=== PATIENT | female | born 1930 | race Caucasian/White ===

== ENCOUNTER 2017-01-30 16:45 | Observation (INO) | payer OTHER ==
[~2017-01-30] VITALS: Ht 165.1 cm; Wt 68.2 kg
[~2017-01-30 16:45] MED LIST: ASPEC325 PO; BTP80 PO; CHOL100010 PO; FRRS300 PO; SIMV10TA2 PO
[2017-01-30 18:34] LABS: BASO % 0.9 %; BASO ABS # 0.05 K/uL (0-0.2); COMPLETE YES; EOS % 2.3 %; HEMATOCRIT 39.4 % (37-47); IG% 0.2 %; LYMPH % 47.1 %; LYMPH ABS # 2.66 K/uL (1.2-3.4); MEAN CELL VOLUME 83.1 fL (80-100); MEAN CORPUSCULAR HEMOGLOBIN 27.8 pg (25-34); MEAN CORPUSCULAR HGB CONC 33.5 g/dl (32-36); MEAN PLATELET VOLUME 10.7 fL (7.4-10.4); NEUT % 37.5 %; PLATELET COUNT 167 K/uL (130-400); RED BLOOD COUNT 4.74 M/uL (4.2-5.4); WHITE BLOOD COUNT 5.65 K/uL (4.8-10.8)
--- NOTE | 2017-01-30 18:36 | DIAGNOSTIC IMAGING REPORT ---
CHEST 2 VIEWS ROUTINE CLINICAL HISTORY: cp eval for pnea dyspnea COMPARISON STUDY: 02/04/2016 FINDINGS: Thoracic scoliosis. Patchy parenchymal infiltrate left base. Baseline emphysematous change. Plate like atelectasis right base. IMPRESSION: Infiltrate left base. Electronically signed by: William Hobbs M.D. 01/30/2017 6:35 PM Dictated Date/Time: 01/30/2017 6:34 PM
[2017-01-30 18:50] LABS: PARTIAL THROMBOPLASTIN RATIO 0.9; PROTHROMBIN TIME (PATIENT) 10.5 SECONDS (9.0-12.0)
[2017-01-30] MEDS ORDERED: ASPI81TA28 PO (18:51)
[2017-01-30] MEDS ORDERED: CALC8.5C PO (18:54)
[2017-01-30] MEDS ORDERED: SOTA80TA PO (18:54)
[2017-01-30] MEDS ORDERED: FERR1TAB62 PO (18:54)
[2017-01-30 18:58] LABS: BUN/CREATININE RATIO 13.6 (10-20); CALCIUM 9.3 mg/dl (8.5-10.1); CREATININE 1.6 mg/dl (0.60-1.20); POTASSIUM 4.2 mmol/L (3.5-5.1)
[2017-01-30] MEDS ORDERED: ACETAMINOPHEN 325 MG TAB PO PRN (21:30)
[2017-01-30] MEDS ORDERED: NITROGLYCERIN 0.4 MG SL PER TAB CHARGE SL PRN (21:30)
--- NOTE | 2017-01-30 21:38 | History and Physical ---
History & Physical Date & Time of Service: Jan 30, 2017 at 21:24 Chief Complaint: Chest Pains- Referred Primary Care Physician: Elma Betancur M.D. History of Present Illness Source: patient, family, clinic records, hospital records 86 year old female with history of Paroxysmal Atrial Fibrillation on Aspirin, CVA, DM Diet Controlled, CKD 3, presenting with chest pain. Patient follows with Dr. Betancur for Primary Care and Dr. Rivas for Cardiology. She was in her usual state of health until this afternoon around 12noon, while changing bedsheets, patient experienced left sided chest pain- mild-moderate, dull, non radiating, no dyspnea/palpitations/dizziness/diaphoresis. She rested and the pain seemed to have subsided after 2 minutes. The chest pain then recurred while at rest prompting patient to take 1 nitroglycerin which did not help relieve her symptoms. She reports that the chest pain was coming and going throughout the afternoon. She then called her PCP which advised ER consult. Patient admits to carrying a very heavy vacuum plate cleaner upstairs (14 steps) yesterday. At the ER, patient was received with BP 175/76. EKG sinus lewis with no signs of acute ischemia. Cardiac markers x 1 negative. CXR showed possible left infiltrate. On exam, patient seen resting in bed, comfortable. Pain has not recurred since arrival at the ER. Denies active chest pain, dyspnea, palpitations, dizziness, nausea. No cough, sputum, fever/chills. No other symptoms. Past Medical/Surgical History Medical Problems: (1) Cerebrovascular disease, arteriosclerotic, post-stroke Status: Chronic (2) CKD (chronic kidney disease), stage III Status: Chronic (3) DM type 2 (diabetes mellitus, type 2) Status: Chronic (4) Dyslipidemia Status: Chronic (5) Glaucoma Status: Chronic (6) H/O herpes zoster Status: Chronic (7) Hypertension Status: Chronic (8) Iron deficiency anemia Status: Chronic (9) PAF (paroxysmal atrial fibrillation) Status: Chronic (10) Stroke Status: Resolved (11) Venous insufficiency Status: Chronic Surgical Problems: (1) H/O breast biopsy Status: Chronic (2) H/O colonoscopy Status: Chronic (3) History of cataract surgery Status: Chronic (4) S/P cholecystectomy Status: Chronic (5) S/p EGD Status: Chronic Family History Diabetes mellitus FH: heart disease Social History Smoking Status: Never Smoker Alcohol Use: none Drug Use: none Marital Status: Housing status: lives alone Occupational Status: retired Immunizations History of Influenza Vaccine: Unknown History of Tetanus Vaccine?: Unknown History of Pneumococcal: Unknown History of Hepatitis B Vaccine: Unknown Multi-Drug Resistant Organisms History of MDRO: No Allergies Coded Allergies: No Known Allergies (Verified , 02/04/16) Home Medications Scheduled Aspirin (Aspirin Ec), 81 MG PO DAILY Calcium W/ Vitamins D & K (Viactiv), 1 TAB PO DAILY Ferrous Sulfate (Ferrous Sulfate), 325 MG PO DAILY Simvastatin (Zocor), 10 MG PO QPM Sotalol Hcl (Sotalol Hcl), 40 MG PO BID Review of Systems Constitutional- no fever; no weight loss Eyes- no acute visual changes ENT- no sinus drainage; no pharyngitis Pulmonary- no cough, no wheezing, no shortness of breath Cardiac-(+) as noted above GI- no nausea, no vomiting, no diarrhea, no melena, no hematochezia - no dysuria, no hematuria Musculoskeletal- no arthralgias, no myalgias Derm- no rashes, no new skin lesions, no changing skin lesions Hematologic- no unusual bruising, no unusual bleeding Lymphatics- no adenopathy Endocrine- no polyuria or polydipsia; no heat or cold intolerance Neuro- no headaches, no focal neurologic symptoms Psych- no anxiety, no depression Physical Exam Vital Signs Date Time Temp Pulse Resp B/P Pulse Ox O2 Delivery O2 Flow Rate FiO2 01/30/17 19:15 58 20 156/69 95 Room Air 01/30/17 18:16 95 Room Air 01/30/17 18:04 60 01/30/17 16:53 36.6 57 18 175/76 97 Room Air 01/30/17 16:53 96 Room Air General Appearance: WD/WN, no apparent distress Head: normocephalic, atraumatic Eyes: normal inspection, PERRL, sclerae normal ENT: normal ENT inspection, pharynx normal, + pertinent finding ((+) hearing aids) Neck: supple, no adenopathy, thyroid normal, no JVD, trachea midline Respiratory/Chest: chest non-tender, lungs clear, normal breath sounds, no respiratory distress, no accessory muscle use, + pertinent finding (no chest wall tenderness) Cardiovascular: regular rate, rhythm, no edema, no JVD, no murmur Abdomen/GI: normal bowel sounds, non tender, soft Back: normal inspection, no CVA tenderness Extremities/Musculoskelatal: normal inspection, no calf tenderness, no pedal edema, normal range of motion Neurologic/Psych: study hall supervisor II-XII nml as tested, no motor/sensory deficits, alert, normal mood/affect, oriented x 3 Skin: normal color, warm/dry, no rash Lymphatic: no adenopathy Diagnostics Laboratory Results Results Past 24 Hours Test 01/30/17 18:14 01/30/17 19:05 Range/Units White Blood Count 5.65 4.8-10.8 K/uL Red Blood Count 4.74 4.2-5.4 M/uL Hemoglobin 13.2 12.0-16.0 g/dL Hematocrit 39.4 37-47 % Mean Corpuscular Volume 83.1 80-100 fL Mean Corpuscular Hemoglobin 27.8 25-34 pg Mean Corpuscular Hemoglobin Concent 33.5 32-36 g/dl Platelet Count 167 130-400 K/uL Mean Platelet Volume 10.7 7.4-10.4 fL Neutrophils (%) (Auto) 37.5 % Lymphocytes (%) (Auto) 47.1 % Monocytes (%) (Auto) 12.0 % Eosinophils (%) (Auto) 2.3 % Basophils (%) (Auto) 0.9 % Neutrophils # (Auto) 2.12 1.4-6.5 K/uL Lymphocytes # (Auto) 2.66 1.2-3.4 K/uL Monocytes # (Auto) 0.68 0.11-0.59 K/uL Eosinophils # (Auto) 0.13 0-0.5 K/uL Basophils # (Auto) 0.05 0-0.2 K/uL RDW Standard Deviation 42.8 36.4-46.3 fL RDW Coefficient of Variation 14.1 11.5-14.5 % Immature Granulocyte % (Auto) 0.2 % Immature Granulocyte # (Auto) 0.01 0.00-0.02 K/uL Prothrombin Time 10.5 9.0-12.0 SECONDS Prothromb Time International Ratio 1.0 0.9-1.1 Activated Partial Thromboplast Time 24.0 21.0-31.0 SECONDS Partial Thromboplastin Ratio 0.9 Sodium Level 143 136-145 mmol/L Potassium Level 4.2 3.5-5.1 mmol/L Chloride Level 109 98-107 mmol/L Carbon Dioxide Level 28 21-32 mmol/L Anion Gap 6.0 3-11 mmol/L Blood Urea Nitrogen 22 7-18 mg/dl Creatinine 1.60 0.60-1.20 mg/dl Est Creatinine Clear Calc Drug Dose 23.6 ml/min Estimated GFR () 33.5 Estimated GFR (Non- 28.9 BUN/Creatinine Ratio 13.6 10-20 Random Glucose 139 70-99 mg/dl Calcium Level 9.3 8.5-10.1 mg/dl Bedside Troponin I 0.000 0-0.045 ng/ml Diagnostic Radiology CXR FINDINGS: Thoracic scoliosis. Patchy parenchymal infiltrate left base. Baseline emphysematous change. Plate like atelectasis right base. IMPRESSION: Infiltrate left base. EKG sinus lewis HR 59, no signs of acute ischemia or infarct Impression Assessment and Plan 86 year old female with history of Paroxysmal Atrial Fibrillation on Aspirin, CVA, DM Diet Controlled, CKD 3, presenting with chest pain. 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 Y/N: Yes Risk Level: Moderate
[2017-01-30] MEDS ORDERED: GLUCAGON FOR INJ 1 MG VIAL SQ PRN (21:45)
[2017-01-30] MEDS ORDERED: GLUCOSE 10 TABS/TUBE PO PRN (21:45)
[2017-01-30] MEDS ORDERED: GLUCOSE 40% GEL 15 GM TUBE PO PRN (21:45)
[2017-01-30] MEDS ORDERED: DEXTROSE 50% 50 ML SYR IV PRN (21:45)
[2017-01-30] MEDS ORDERED: IV FLUIDS COMPLETED PRN (21:45)
--- NOTE | 2017-01-30 23:29 | EMERGENCY ROOM VISIT NOTE ---
History Report prepared by Jordan: Malik Hernandez Under the Supervision of: Dr. Landen Donato M.D. First contact with patient: 17:50 Chief Complaint: CHEST PAIN Stated Complaint: CHEST PAINS- REFERRED Nursing Triage Summary: PT VERBALIZES "SOMETHING JUST ISN'T RIGHT IN MY CHEST". DENIES CP OR SOB. PT TOOK TWO NITRO AT HOME WITH NO CHANGE IN SYMPTOMS. History of Present Illness The patient is a 86 year old female who presents to the Emergency Room with complaints of intermittent left chest discomfort starting around 1200 today. The patient states that it is difficult to describe the discomfort. She describes it to be an "unusual feeling" in her chest. She denies it to be a sharp, aching pain. She does not think there is any chest tightness. She denies any radiation to back or arm. She currently denies any chest pain or discomfort. She took Nitro without relief. The patient denies any recent illnesses, lightheadedness, fevers, cough, shortness of breath, nausea, abdominal pain, lower extremity pain/swelling, or any other complaints. She denies any history of similar symptoms. She has a history of chest pain occurring for the past several years. The patient denies any past medical history of myocardial infarction or heart catheterization. Source of History: patient Onset: around 1200 today Position: chest (left) Symptom Intensity: No pain or discomfort currently Quality: other (discomfort) Timing: intermittent Modifying Factors (Relieving): other (Nitro without relief) Associated Symptoms: No SOB, No abdominal pain, No cough, No fevers, No nausea Review of Systems See HPI for pertinent positives & negatives. A total of 10 systems reviewed and were otherwise negative. Past Medical & Surgical Medical Problems: (1) Cerebrovascular disease, arteriosclerotic, post-stroke (2) Chest pain (3) CKD (chronic kidney disease), stage III (4) DM type 2 (diabetes mellitus, type 2) (5) Dyslipidemia (6) Glaucoma (7) H/O herpes zoster (8) Hypertension (9) Iron deficiency anemia (10) PAF (paroxysmal atrial fibrillation) (11) Stroke (12) Venous insufficiency Surgical Problems: (1) H/O breast biopsy (2) H/O colonoscopy (3) History of cataract surgery (4) S/P cholecystectomy (5) S/p EGD Family History Diabetes mellitus FH: heart disease Social History Smoking Status: Never Smoker Alcohol Use: none Occupation Status: retired Current/Historical Medications Scheduled Aspirin (Aspirin Ec), 81 MG PO DAILY Calcium W/ Vitamins D & K (Viactiv), 1 TAB PO DAILY Ferrous Sulfate (Ferrous Sulfate), 325 MG PO DAILY Simvastatin (Zocor), 10 MG PO QPM Sotalol Hcl (Sotalol Hcl), 40 MG PO BID Allergies Coded Allergies: No Known Allergies (Verified , 02/04/16) Physical Exam Vital Signs Date Time Temp Pulse Resp B/P Pulse Ox O2 Delivery O2 Flow Rate FiO2 01/30/17 23:13 57 18 167/79 98 01/30/17 22:55 57 18 167/79 98 Room Air 01/30/17 21:00 58 16 176/86 100 Room Air 01/30/17 19:15 58 20 156/69 95 Room Air 01/30/17 18:16 95 Room Air 01/30/17 18:04 60 01/30/17 16:53 36.6 57 18 175/76 97 Room Air 01/30/17 16:53 96 Room Air Physical Exam Constitutional: Vital signs reviewed. Eyes: Pupils are equal round reactive to light. Conjunctiva are noninjected. ENT: Pharynx is clear without erythema or exudate. Mucous membranes are moist. Neck supple without meningeal signs. Respiratory: Clear to auscultation bilaterally. Breath sounds are equal bilaterally. Cardiovascular: Regular rate and rhythm. No rubs or gallops. GI: Soft, nondistended and nontender. Bowel sounds are present. No pulsatile mass. Musculoskeletal: No peripheral edema. No lower extremity tenderness. Integumentary: No cyanosis. Neurological: The patient is awake and alert. No focal deficits. Psychiatric: Normal affect. Medical Decision & Procedures ER Provider Diagnostic Interpretation: X-ray results as stated below per interpretation by me and the radiologist: CHEST 2 VIEWS ROUTINE CLINICAL HISTORY: cp eval for pnea dyspnea COMPARISON STUDY: 02/04/2016 FINDINGS: Thoracic scoliosis. Patchy parenchymal infiltrate left base. Baseline emphysematous change. Plate like atelectasis right base. IMPRESSION: Infiltrate left base. Electronically signed by: William Hobbs M.D. 01/30/2017 6:35 PM Dictated Date/Time: 01/30/2017 6:34 PM Laboratory Results 01/30/17 18:14 Red Blood Count 4.74, Mean Corpuscular Volume 83.1, Mean Corpuscular Hemoglobin 27.8, Mean Corpuscular Hemoglobin Concent 33.5, Mean Platelet Volume 10.7, Neutrophils (%) (Auto) 37.5, Lymphocytes (%) (Auto) 47.1, Monocytes (%) (Auto) 12.0, Eosinophils (%) (Auto) 2.3, Basophils (%) (Auto) 0.9, Neutrophils # (Auto ) 2.12, Lymphocytes # (Auto) 2.66, Monocytes # (Auto) 0.68, Eosinophils # (Auto ) 0.13, Basophils # (Auto) 0.05 01/30/17 18:14 Test 01/30/17 18:14 01/30/17 19:05 White Blood Count 5.65 K/uL (4.8-10.8) Red Blood Count 4.74 M/uL (4.2-5.4) Hemoglobin 13.2 g/dL (12.0-16.0) Hematocrit 39.4 % (37-47) Mean Corpuscular Volume 83.1 fL (80-100) Mean Corpuscular Hemoglobin 27.8 pg (25-34) Mean Corpuscular Hemoglobin Concent 33.5 g/dl (32-36) Platelet Count 167 K/uL (130-400) Mean Platelet Volume 10.7 fL (7.4-10.4) Neutrophils (%) (Auto) 37.5 % Lymphocytes (%) (Auto) 47.1 % Monocytes (%) (Auto) 12.0 % Eosinophils (%) (Auto) 2.3 % Basophils (%) (Auto) 0.9 % Neutrophils # (Auto) 2.12 K/uL (1.4-6.5) Lymphocytes # (Auto) 2.66 K/uL (1.2-3.4) Monocytes # (Auto) 0.68 K/uL (0.11-0.59) Eosinophils # (Auto) 0.13 K/uL (0-0.5) Basophils # (Auto) 0.05 K/uL (0-0.2) RDW Standard Deviation 42.8 fL (36.4-46.3) RDW Coefficient of Variation 14.1 % (11.5-14.5) Immature Granulocyte % (Auto) 0.2 % Immature Granulocyte # (Auto) 0.01 K/uL (0.00-0.02) Prothrombin Time 10.5 SECONDS (9.0-12.0) Prothromb Time International Ratio 1.0 (0.9-1.1) Activated Partial Thromboplast Time 24.0 SECONDS (21.0-31.0) Partial Thromboplastin Ratio 0.9 D-Dimer 1460 ug/L FEU (0-500) Anion Gap 6.0 mmol/L (3-11) Est Creatinine Clear Calc Drug Dose 23.6 ml/min Estimated GFR () 33.5 Estimated GFR (Non- 28.9 BUN/Creatinine Ratio 13.6 (10-20) Calcium Level 9.3 mg/dl (8.5-10.1) Bedside Troponin I 0.000 ng/ml (0-0.045) Troponin is 0. Laboratory results as reviewed by me. ECG Indication: other (Chest discomfort) Rate (beats per minute): 59 Rhythm: sinus bradycardia Findings: no acute ischemic change, no ectopy ED Course 1749: The patient was evaluated in room B07. A complete history and physical exam was performed. 1934: I talked to the patient and her daughter who is a nurse about her test results. She says that she has no symptoms consistent with pneumonia although she has been around grandchildren who have been sick. I discussed the treatment plan. They verbalized agreement and understanding. The patient will be evaluated for further management and care. 1940: I discussed the patient's case with Dr. Sweeney, from [facility]. Medical Decision This is an 86-year-old female presents with chest pain. Differential diagnosis includes unstable angina, IL, pleurisy, pneumonia, pleural effusion, GERD. I did perform a limited focused review of portions of the patient's old chart on the electronic medical record. The patient was admitted in February 2016 for chest pain. She had a CTA of chest which showed focal mild aneurysmal dilatation at the junction of the thoracic and abdominal aorta measuring 3.1 cm. I did evaluate the patient as noted above. The patient is presenting with left- sided chest discomfort starting at noon today. She has no other symptoms associated with it. She is currently not having any chest discomfort. She did take her nitroglycerin home but she thinks it is . IV access was established. 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 I did order and personally review the patient's 12-lead EKG and chest x-ray as described above. The chest x-ray demonstrates a left lower lobe infiltrate. I did order and review the patient's blood work as noted in the electronic medical record. Troponin is negative. I did discuss the test results with the patient and her daughter who is a nurse. The patient states she is surprised about infiltrative she has had no cold symptoms. She states she has no cough or fever. She has been around her grandkids who have been sick. After discussion with the patient and her daughter it was decided that she would be hospitalized for further evaluation and repeat cardiac enzymes. I did discuss case with the hospitalist and family service caseworker. Consults Time Called: 1939 Consulting Physician: Dr. Sweeney, from [facility] Returned Call: 1940 I discussed the patient's case with Dr. Sweeney, from [facility]. Impression Primary Impression: Left sided chest pain Additional Impression: Pulmonary infiltrate in left lung on CXR Scribe Attestation The scribe's documentation has been prepared under my direct and personally reviewed by me in its entirety. I confirm that the note above accurately reflects all work, treatment, procedures, and medical decision making performed by me. Departure Information Dispostion Being Evaluated By Hospitalist Referrals Elma Betancur M.D. (PCP) Patient Instructions My [facility] Problem Qualifiers
[2017-01-31] VITALS (10 sets, daily range): BP systolic 107–185; BP diastolic 66–84; PULSE 51–65; TEMP 36.5–37; O2SAT 93–97; Ht 165.1 cm; Wt 68.2 kg
[2017-01-31 02:18] LABS: CKMB/CK RATIO 1.4 (0-3.0)
[2017-01-31] MEDS ORDERED: INFLUENZA ADMINISTRATION CHARGE ONE (05:45)
[2017-01-31] MEDS ORDERED: INFLUENZA VIRUS QUAD VACCINE 0.5 ML SYR IM. ONE (05:45)
[2017-01-31] MEDS ORDERED: PNEUMOCOCCAL ADMINISTRATION CHARGE ONE (05:45)
[2017-01-31] MEDS ORDERED: PNEUMOCOCCAL POLYSACCHARIDES 25 MCG/0.5 ML VIAL/SYR IM. ONE (05:45)
[2017-01-31] MEDS: INSULIN ASPART 100 UNITS/ML 3 ML PEN SC SCH ×4 (06:30→21:00)
--- NOTE | 2017-01-31 07:13 | DIAGNOSTIC IMAGING REPORT ---
ULTRASOUND BILATERAL LOWER EXTREMITY VENOUS CLINICAL HISTORY: Atypical chest pain. Elevated d-dimer. Clinical concern for deep venous thrombosis. COMPARISON STUDY: No priors. TECHNIQUE: Real-time, grayscale, and color Doppler sonography of the deep veins of the right and left lower extremity was performed from the inguinal crease to the calf. Compression and augmentation were utilized. FINDINGS: There is no sonographic evidence of deep venous thrombosis identified in the right or left lower extremity. The common femoral, superficial femoral, and popliteal veins are patent and normally compressible bilaterally. The greater saphenous vein and the profunda femoris vein at the junction with the common femoral vein are clear in both legs. The visualized calf veins are patent bilaterally. There are small bilateral popliteal cysts, measuring 6.0 x 0.7 x 1.5 cm on the right and 3.8 x 0.7 x 1.7 cm on the left. IMPRESSION: 1. There is no sonographic evidence of deep venous thrombosis identified in the right or left lower extremity. 2. Small bilateral Gaines's cysts. Electronically signed by: Mac Johnson M.D. 01/31/2017 7:11 AM Dictated Date/Time: 01/31/2017 7:10 AM
[2017-01-31 07:31] LABS: BASO % 0.8 %; BASO ABS # 0.04 K/uL (0-0.2); COMPLETE YES; EOS % 2.8 %; LYMPH % 37.8 %; LYMPH ABS # 1.99 K/uL (1.2-3.4); MEAN CELL VOLUME 82.6 fL (80-100); MEAN CORPUSCULAR HEMOGLOBIN 27.6 pg (25-34); MEAN CORPUSCULAR HGB CONC 33.4 g/dl (32-36); MONO % 12.9 %; NEUT % 45.7 %; PLATELET COUNT 140 K/uL (130-400); WHITE BLOOD COUNT 5.27 K/uL (4.8-10.8)
[2017-01-31 08:10] LABS: BLOOD UREA NITROGEN 20 mg/dl (7-18); BUN/CREATININE RATIO 14.4 (10-20); CARBON DIOXIDE 29 mmol/L (21-32); CHLORIDE 108 mmol/L (98-107); GLUCOSE 114 mg/dl (70-99); POTASSIUM 4.4 mmol/L (3.5-5.1); SODIUM 143 mmol/L (136-145)
[2017-01-31] MEDS: SOTALOL HCL 80 MG TAB PO SCH ×2 (09:00→21:04)
--- NOTE | 2017-01-31 09:38 | DIAGNOSTIC IMAGING REPORT ---
CHEST 2 VIEWS ROUTINE CLINICAL HISTORY: Abnormal chest x-ray. COMPARISON STUDY: 01/30/2017 FINDINGS: The cardiac and mediastinal contours remain stable. There is no lobar consolidation. There is improving basilar interstitial thickening. There is no failure. There are no cystic or pleural effusions.[ IMPRESSION: Resolving basilar interstitial thickening. No evidence of lobar consolidation Electronically signed by: Dago Lanier M.D. 01/31/2017 9:37 AM Dictated Date/Time: 01/31/2017 9:36 AM
[2017-01-31] MEDS: ASPIRIN 81 MG ECTAB PO SCH (10:00)
[2017-01-31] MEDS: FERROUS SULFATE 325 MG TAB PO SCH (10:00)
[2017-01-31] MEDS: CALCIUM 600MG + VIT D 400 IU TAB PO SCH (10:01)
[2017-01-31] MEDS ORDERED: NURSING VERBAL MED ORDER ONE (10:15)
--- NOTE | 2017-01-31 10:37 | Cardiology Consultation ---
Cardiology Consultation Date of Service Jan 31, 2017. (Lorena Mccord, FLIP) Cardiology Consultation HISTORY OF PRESENT ILLNESS: The patient is an 86-year-old female who follows with Dr. 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 She underwent dobutamine stress echo in 02/2016 during admission for atypical chest pain that was negative for inducible ischemia. Other history includes DM type II, controlled with diet, dyslipidemia. Patient states she noted a "weird" sensation on the left side of her chest yesterday. Occurred intermittently, lasting several seconds at a time and resolving spontaneously. After several hours of intermittent feeling, she came to ER for evaluation. She adamantly denies this was chest pain or tightness. Not a stabbing pain. She denies associated symptoms of diaphoresis, dizziness, palpitations, SOB. No radiation. Not related to exertional activities. She does mention she carried heavy vacuum glove cleaner up the stairs the day prior and thought she "pulled a muscle". Otherwise she has been in her normal state of health. She is active on a daily basis, living alone and performing daily activities wihtout exertional chest pain or SOB. No changes to her overall functional capacity. Since admission and at time of consult, she denies recurrent symptoms. No current chest pain or SOB. No dizziness. No palpitations. No orthopnea, PND or LE edema. No recent weight gain. EKG demonstrating NSR/sinus bradycardia with stable QT/QTc Labs relatively unremarkable other than mild renal insufficiency. Review of Systems: See HPI for pertinent positives. All other 10 point review of systems is negative. PAST MEDICAL HISTORY: 1. Paroxysmal atrial fibrillation 2. Prior CVA 3. AV malformations of the colon 4. mild dilatation of the abdominal aorta at 3.1 cm 02/2016 5. Dyslipidemia 6. DM type II, controlled with diet currently Surgical History: (1) H/O breast biopsy (2) H/O colonoscopy (3) History of cataract surgery (4) S/P cholecystectomy (5) S/p EGD SOCIAL HISTORY: She lives independently. She is a nonsmoker. No alchol abuse. Family lives near by. FAMILY MEDICAL HISTORY: Noncontributory. Allergies: No known allergies Medications: Reported Home Medications Medications Dose Route/Sig Max Daily Dose Days Date Category Viactiv (Calcium W/ Vitamins D & K) 1 Chw Chw 1 Tab PO DAILY 01/30/17 Reported Sotalol Hcl 80 Mg Tab 40 Mg PO BID 01/30/17 Reported Ferrous Sulfate 325 Mg Tab 325 Mg PO DAILY 01/30/17 Reported Aspirin Ec (Aspirin) 81 Mg Tab 81 Mg PO DAILY 01/30/17 Reported Zocor (Simvastatin) 10 Mg Tab 10 Mg PO QPM 02/04/16 Reported PHYSICAL EXAMINATION: Last 8 Hrs Date Time Temp Pulse Resp B/P Pulse Ox O2 Delivery O2 Flow Rate FiO2 01/31/17 07:55 37.0 51 18 185/84 93 Room Air 01/31/17 04:00 36.5 57 18 122/68 96 Room Air 01/31/17 04:00 Room Air GENERAL: She is alert and oriented in no acute distress. HEENT: She is normocephalic. Pupils are equal and reactive to light. Extraocular muscles are intact bilaterally. NECK: The neck veins are flat. Carotids have good upstrokes bilaterally without bruits. Thyroid is nonpalpable. RESPIRATORY: Breath sounds equal bilaterally and clear to auscultation. CARDIOVASCULAR: Heart has a regular rhythm. Normal S1, S2. No S3, S4. No cardiac rubs or murmurs. GASTROINTESTINAL: Abdomen is soft, nontender without organomegaly. EXTREMITIES: Free of edema, digital clubbing, or cyanosis. NEUROLOGIC: Grossly intact. SKIN: Warm to touch. LYMPH NODES: Negative to palpation. DATA: EKG on admission: Sinus bradycardia with sinus arrhythmia Otherwise normal ECG When compared with ECG of 06-FEB-2016 06:39, No significant change was found QT/QTc 434/429 ms Repeat EKG this AM, 01/31/17: Sinus bradycardia Otherwise normal ECG When compared with ECG of 30-JAN-2017 16: 53, (unconfirmed) No significant change was found Chest xray on admission, per report: IMPRESSION: Infiltrate left base. Repeat Chest xray this morning: IMPRESSION: Resolving basilar interstitial thickening. No evidence of lobar consolidation Venous duplex b/l: No evidence of DVT. Resting 2D echocardiogram 02/2016 at [facility]: A complete two-dimensional transthoracic echocardiogram was performed (2D, M- mode, Doppler and color flow Doppler). The left ventricular wall motion is normal. The LV Ejection Fraction = 55-60%. Mild aortic regurgitation is present. There is mild mitral regurgitation. There is mild tricuspid regurgitation. Doppler findings do not suggest pulmonary hypertension Dobutamine stress echo 02/2016 at [facility]: STRESS STUDY: Normal pharmacologic stress echocardiogram. No echocardiographic or ECG evidence of myocardial ischemia having achieved heart rate adequate for diagnostic purposes. Last 24 Hours Test 01/30/17 18:14 01/30/17 19:05 01/31/17 01:27 01/31/17 07:20 White Blood Count 5.65 K/uL 5.27 K/uL Red Blood Count 4.74 M/uL 4.60 M/uL Hemoglobin 13.2 g/dL 12.7 g/dL Hematocrit 39.4 % 38.0 % Mean Corpuscular Volume 83.1 fL 82.6 fL Mean Corpuscular Hemoglobin 27.8 pg 27.6 pg Mean Corpuscular Hemoglobin Concent 33.5 g/dl 33.4 g/dl Platelet Count 167 K/uL 140 K/uL Mean Platelet Volume 10.7 fL 10.0 fL Neutrophils (%) (Auto) 37.5 % 45.7 % Lymphocytes (%) (Auto) 47.1 % 37.8 % Monocytes (%) (Auto) 12.0 % 12.9 % Eosinophils (%) (Auto) 2.3 % 2.8 % Basophils (%) (Auto) 0.9 % 0.8 % Neutrophils # (Auto) 2.12 K/uL 2.41 K/uL Lymphocytes # (Auto) 2.66 K/uL 1.99 K/uL Monocytes # (Auto) 0.68 K/uL 0.68 K/uL Eosinophils # (Auto) 0.13 K/uL 0.15 K/uL Basophils # (Auto) 0.05 K/uL 0.04 K/uL RDW Standard Deviation 42.8 fL 42.8 fL RDW Coefficient of Variation 14.1 % 14.2 % Immature Granulocyte % (Auto) 0.2 % 0.0 % Immature Granulocyte # (Auto) 0.01 K/uL 0.00 K/uL Prothrombin Time 10.5 SECONDS Prothromb Time International Ratio 1.0 Activated Partial Thromboplast Time 24.0 SECONDS Partial Thromboplastin Ratio 0.9 D-Dimer 1460 ug/L FEU Sodium Level 143 mmol/L 143 mmol/L Potassium Level 4.2 mmol/L 4.4 mmol/L Chloride Level 109 mmol/L 108 mmol/L Carbon Dioxide Level 28 mmol/L 29 mmol/L Anion Gap 6.0 mmol/L 6.0 mmol/L Blood Urea Nitrogen 22 mg/dl 20 mg/dl Creatinine 1.60 mg/dl 1.40 mg/dl Est Creatinine Clear Calc Drug Dose 23.6 ml/min 26.0 ml/min Estimated GFR () 33.5 39.3 Estimated GFR (Non- 28.9 33.9 BUN/Creatinine Ratio 13.6 14.4 Random Glucose 139 mg/dl 114 mg/dl Calcium Level 9.3 mg/dl 9.0 mg/dl Bedside Troponin I 0.000 ng/ml Total Creatine Kinase 35 U/L 28 U/L Creatine Kinase MB 0.5 ng/ml < 0.5 ng/ml Creatine Kinase MB Ratio 1.4 Troponin I < 0.015 ng/ml < 0.015 ng/ml Test 01/31/17 08:21 Bedside Glucose 99 mg/dl IMPRESSION: 1. Atypical chest pain. 2. Paroxysmal atrial fibrillation, controlled in NSR on renal dose sotalol 40 mg BID. Not on anticoagulation therapy given AV malformations. On ASA 81 mg daily. 3. 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 4. Diabetes mellitus. 5. Hypertension, situational. Controlled in outpatient setting. patient admits to anxiety here. Recommendations: Patient remains symptom free. Negative cardiac enzymes x2 Normal/nonischemic EKG x2. Await echo. If echo is unchanged, no further cardiac testing recommended or necessary at this time. Monitor BP as outpatient. Patient admits to high anxiety level during hospitalization Case to be discussed with Dr. Vaz (Lorena Mccord PA-C) CARDIOLOGY ATTENDING ADDENDUM: The patient was seen and personally examined. Agree with Lorena Mccord PA-C's findings and plans as documented above with additions as noted below. S: patient states she feels well. Denies chest pain , states a sensation of "uneasiness" prompted her to come to hospital and this has resolve. Denies SOB. Telemetry reveals SR. Exam: lungs CTAB, CV regular Data: High proph VQ scan in left base LEVD: no DVT Impression: chest pain that is atypical for angina (and atypical for pulmonary embolism) Elevated D -dimer h/o PAF CKD , preventing CT angio of test Plan: Agree with anticoagulation for presumed PE. Echocardiogram this admission. Heparin infusion ordered by Dr Guzman, It has not been started. I spoke to pt's nurse and pharmacy to facilitate initiation of heparin gtt. (Jose Vaz,D.O.)
--- NOTE | 2017-01-31 10:53 | Progress Note ---
Internal Med Progress Note Date of Service: Jan 31, 2017. Provider Documentation: SUBJECTIVE: patient says she had weird feelings in her chest yesterday for short duration about 3 times in a hour period since then no similar symptoms denies sob or cough no dizziness afebrile OBJECTIVE: Vital Signs-as noted below Exam: General-alert and oriented x 3 Not in distress ENT-normal hearing Neck-no neck masses Lungs-cta b/l no wheezing no crackles Heart-s1 and s2 regular rate and rhythm no murmurs' Abdomen-soft bowel sounds present non tender no distension Extremities-no edema no erythema Neuro-alert and awake and oriented moves extremities Lab data as noted below. ASSESSMENT & PLAN: 86 year old female with history of Paroxysmal Atrial Fibrillation on Aspirin, CVA, DM Diet Controlled, CKD 3, presenting with chest pain. ATYPICAL CHEST PAIN currently asymptomatic serial CE and ekg unremarkable await echo if echo unremarkable plan to d/c home seen by cardiology and appreciate inputs D dimer elevated venous Doppler negative but v/q scan high probability hx of GI bleed and AVM in colon plan for cta chest in am with half dose of contrast for CKD consulted GI regarding initiation of anticoagulation if ct chest confirms PE and no anticoagulation recommended will plan for ivc filter started on low dose iv heparin. 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 CKD 3 baseline crea 1.3-1.5 gentle fluids for plan for ct chest to rule out PE at baseline HISTORY OF CVA on Aspirin, Statin DM diet controlled HISTORY OF THORACIC AORTA ANEURYSM 3.1cm per CT Abd in 2016 on Aspirin, Statin Full code per daughter DVT prophylaxis SCDs Disposition lives alone at home ambulate pt/ot Vital Signs: Date Time Temp Pulse Resp B/P Pulse Ox O2 Delivery O2 Flow Rate FiO2 01/31/17 16:00 93 Room Air 01/31/17 15:00 37.0 56 18 157/74 96 Room Air 01/31/17 12:02 37.0 58 18 177/74 97 Room Air 01/31/17 09:59 57 134/70 01/31/17 08:00 93 Room Air 01/31/17 07:55 37.0 51 18 185/84 93 Room Air 01/31/17 04:00 36.5 57 18 122/68 96 Room Air 01/31/17 04:00 Room Air 01/31/17 00:00 36.5 60 18 107/69 96 Room Air 01/30/17 23:13 57 18 167/79 98 01/30/17 22:55 57 18 167/79 98 Room Air 01/30/17 21:00 58 16 176/86 100 Room Air 01/30/17 19:15 58 20 156/69 95 Room Air 01/30/17 18:16 95 Room Air Lab Results: Results Past 24 Hours Test 01/30/17 18:14 01/30/17 19:05 01/31/17 01:27 01/31/17 07:20 Range/Units White Blood Count 5.65 5.27 4.8-10.8 K/uL Red Blood Count 4.74 4.60 4.2-5.4 M/uL Hemoglobin 13.2 12.7 12.0-16.0 g/dL Hematocrit 39.4 38.0 37-47 % Mean Corpuscular Volume 83.1 82.6 80-100 fL Mean Corpuscular Hemoglobin 27.8 27.6 25-34 pg Mean Corpuscular Hemoglobin Concent 33.5 33.4 32-36 g/dl Platelet Count 167 140 130-400 K/uL Mean Platelet Volume 10.7 10.0 7.4-10.4 fL Neutrophils (%) (Auto) 37.5 45.7 % Lymphocytes (%) (Auto) 47.1 37.8 % Monocytes (%) (Auto) 12.0 12.9 % Eosinophils (%) (Auto) 2.3 2.8 % Basophils (%) (Auto) 0.9 0.8 % Neutrophils # (Auto) 2.12 2.41 1.4-6.5 K/uL Lymphocytes # (Auto) 2.66 1.99 1.2-3.4 K/uL Monocytes # (Auto) 0.68 0.68 0.11-0.59 K/uL Eosinophils # (Auto) 0.13 0.15 0-0.5 K/uL Basophils # (Auto) 0.05 0.04 0-0.2 K/uL RDW Standard Deviation 42.8 42.8 36.4-46.3 fL RDW Coefficient of Variation 14.1 14.2 11.5-14.5 % Immature Granulocyte % (Auto) 0.2 0.0 % Immature Granulocyte # (Auto) 0.01 0.00 0.00-0.02 K/uL Prothrombin Time 10.5 9.0-12.0 SECONDS Prothromb Time International Ratio 1.0 0.9-1.1 Activated Partial Thromboplast Time 24.0 21.0-31.0 SECONDS Partial Thromboplastin Ratio 0.9 D-Dimer 1460 0-500 ug/L FEU Sodium Level 143 143 136-145 mmol/L Potassium Level 4.2 4.4 3.5-5.1 mmol/L Chloride Level 109 108 98-107 mmol/L Carbon Dioxide Level 28 29 21-32 mmol/L Anion Gap 6.0 6.0 3-11 mmol/L Blood Urea Nitrogen 22 20 7-18 mg/dl Creatinine 1.60 1.40 0.60-1.20 mg/dl Est Creatinine Clear Calc Drug Dose 23.6 26.0 ml/min Estimated GFR () 33.5 39.3 Estimated GFR (Non- 28.9 33.9 BUN/Creatinine Ratio 13.6 14.4 10-20 Random Glucose 139 114 70-99 mg/dl Calcium Level 9.3 9.0 8.5-10.1 mg/dl Bedside Troponin I 0.000 0-0.045 ng/ml Total Creatine Kinase 35 28 26-192 U/L Creatine Kinase MB 0.5 < 0.5 0.5-3.6 ng/ml Creatine Kinase MB Ratio 1.4 0-3.0 Troponin I < 0.015 < 0.015 0-0.045 ng/ml Test 01/31/17 08:21 01/31/17 13:13 01/31/17 16:56 Range/Units Bedside Glucose 99 112 94 70-90 mg/dl
--- NOTE | 2017-01-31 12:44 | DIAGNOSTIC IMAGING REPORT ---
NUCLEAR MEDICINE VENTILATION/PERFUSION SCAN CLINICAL HISTORY: Dysphagia. Chest pain. COMPARISON: None TECHNIQUE: For the ventilation portion of this exam, 32.4 mCi of DTPA was inhaled at 11:50 AM. Immediately following inhalation, imaging of the chest was carried out in the anterior, posterior, left lateral, right lateral, LPO, RPO, FAROESE and BYRD projections. For the perfusion portion of exam, 5.3 mCi of technetium 99m MAA was injected IV at 12:20 PM. Immediately following injection, imaging of the chest was carried out in the same projections. FINDINGS: Ventilation/perfusion mismatch involving left lung base. Mild in homogeneity of perfusion throughout the hemithoraces bilaterally. Inhomogeneous ventilation throughout. IMPRESSION: High probability of pulmonary embolus left lung base Electronically signed by: William Hobbs M.D. 01/31/2017 12:43 PM Dictated Date/Time: 01/31/2017 12:40 PM
[2017-01-31] MEDS ORDERED: HEPARIN IV LOW DOSE NO BOLUS SCH (14:30)
[2017-01-31] MEDS: HEPARIN 25,000 UNIT/500ML D5W 500 ML IV PRN (14:48)
[2017-01-31] MEDS: SODIUM CHLORIDE 0.9% 1000ML 1,000 ML IV SCH (17:40)
--- NOTE | 2017-01-31 18:56 | ECHOCARDIOGRAM REPORT ---
*NOTICE TO RECEIVING CONSTITUTION PARTY AGENCY This information is strictly Confidential and protected under [place] law. [place] law prohibits you from making any further disclosure of this information unless further disclosure is expressly permitted by the written consent of the person to whom it pertains or is authorized by law. A general authorization for the release of medical or other information is not sufficient for this purpose. Hospital accepts no responsibility if the information is made available to any other person, INCLUDING THE PATIENT. Interpretation Summary * Name: KATLIN TYLER Study Date: 01/31/2017 04:14 PM BP: 122/68 mmHg * Patient Location: [facility] HR: 55 * : 1930 (M/d/yyyy) Gender: Female Height: 66 in * Age: 86 yrs Ethnicity: [place] Weight: 149 lb * Ordering Physician: POLO WINTERS MD * Performed By: Liz Guadarrama RCS * * Reason For Study: CHEST PAIN * BSA: 1.8 m2 * The study was technically adequate. * -- Conclusions -- * Sinus bradycardia was present during the echocardiogram examination. * There is mild concentric left ventricular hypertrophy. * The basal septum is thickened and angulated consistent with sigmoid septum. * No regional wall motion abnormalities noted. * The aortic valve is mildly calcified. * Mild valvular aortic stenosis. * Mild aortic regurgitation. * There is mild tricuspid regurgitation. * Doppler findings do not suggest pulmonary hypertension. * The calculated pulmonary artery systolic pressure is 37 mm Hg (upper limit of normal). * The right ventricle is normal in size and function. Procedure Details * A complete two-dimensional transthoracic echocardiogram was performed (2D, M-mode, Doppler and color flow Doppler). Left Ventricle * The left ventricle is normal in size. * There is mild concentric left ventricular hypertrophy. * The basal septum is thickened and angulated consistent with sigmoid septum. * Left ventricular systolic function is normal. * Ejection Fraction = 55-60%. * The left ventricular wall motion is normal. * No regional wall motion abnormalities noted. Right Ventricle * The right ventricle is normal in size and function. Atria * The left atrial size is normal. * Right atrial size is normal. * There is no evidence of atrial septal defect, but resolution does not allow assessment for a patent foramen ovale. Mitral Valve * The mitral valve leaftlets are mildly calcified. * There is no mitral valve stenosis. * Significant mitral regurgitation is absent. Tricuspid Valve * The tricuspid valve is normal. * There is no tricuspid stenosis. * There is mild tricuspid regurgitation. * Doppler findings do not suggest pulmonary hypertension. * The calculated pulmonary artery systolic pressure is 37 mm Hg (upper limit of normal). Aortic Valve * The aortic valve is trileaflet. * The aortic valve is mildly calcified. * Mild valvular aortic stenosis. * Mild aortic regurgitation. Pulmonic Valve * The pulmonary valve is not well seen, but the Doppler examination is normal without significant regurgitation or stenosis. Great Vessels * The aortic root and proximal ascending aorta are normal sized. Pericardium/Pleural * There is no pericardial effusion. Great Vessels * Normal inferior vena cava diameter and respiratory variation suggests normal central venous pressure. * Normal inferior vena cava size and collapsability with sniff indicates a normal right atrial pressure of 3 mmHg Left Ventricular Diastolic Function * Grade I diastolic dysfunction, (abnormal relaxation pattern). MMode 2D Measurements and Calculations IVSd 2.3 cm IVSs 1.7 cm LVIDd 2.9 cm LVIDs 2.1 cm LVPWd 1.5 cm LVPWs 1.4 cm IVS/LVPW 1.5 FS 26.4 % EDV(Teich) 31.6 ml ESV(Teich) 14.8 ml EF(Teich) 53.3 % EDV(cubed) 23.9 ml ESV(cubed) 9.5 ml EF(cubed) 60.1 % % IVS thick -24.46 % % LVPW thick -5.31 % LV mass(C)d 224.2 grams LV mass(C)dI 127.0 grams/m\S\2 LV mass(C)s 112.7 grams LV mass(C)sI 63.9 grams/m\S\2 SV(Teich) 16.9 ml SI(Teich) 9.6 ml/m\S\2 SV(cubed) 14.3 ml SI(cubed) 8.1 ml/m\S\2 Ao root diam 4.1 cm Ao root area 13.1 cm\S\2 LA dimension 2.9 cm LA/Ao 0.70 LVOT diam 2.0 cm LVOT area 3.2 cm\S\2 LVAd ap4 25.7 cm\S\2 LVLd ap4 7.0 cm EDV(MOD-sp4) 75.7 ml EDV(sp4-el) 80.0 ml LVAs ap4 18.6 cm\S\2 LVLs ap4 6.5 cm ESV(MOD-sp4) 44.3 ml ESV(sp4-el) 45.2 ml EF(MOD-sp4) 41.4 % EF(sp4-el) 43.5 % LVAd ap2 22.1 cm\S\2 LVLd ap2 6.1 cm EDV(MOD-sp2) 66.4 ml EDV(sp2-el) 68.4 ml LVAs ap2 16.5 cm\S\2 LVLs ap2 5.8 cm ESV(MOD-sp2) 37.6 ml ESV(sp2-el) 39.7 ml EF(MOD-sp2) 43.4 % EF(sp2-el) 41.9 % LVLd %diff -14.97 % EDV(MOD-bp) 76.9 ml LVLs %diff -12.39 % ESV(MOD-bp) 42.8 ml EF(MOD-bp) 44.3 % SV(MOD-sp4) 31.4 ml SI(MOD-sp4) 17.8 ml/m\S\2 SV(MOD-sp2) 28.8 ml SI(MOD-sp2) 16.3 ml/m\S\2 SV(MOD-bp) 34.1 ml SI(MOD-bp) 19.3 ml/m\S\2 SV(sp4-el) 34.8 ml SI(sp4-el) 19.7 ml/m\S\2 SV(sp2-el) 28.6 ml SI(sp2-el) 16.2 ml/m\S\2 Doppler Measurements and Calculations MV E max angeli 57.2 cm/sec MV A max angeli 97.1 cm/sec MV E/A 0.59 MV P1/2t max angeli 63.8 cm/sec MV P1/2t 158.9 msec MVA(P1/2t) 1.4 cm\S\2 MV dec slope 117.7 cm/sec\S\2 MV dec time 0.33 sec Ao V2 max 163.6 cm/sec Ao max PG 10.7 mmHg Ao max PG (full) 7.8 mmHg SHAN(V,A) 1.6 cm\S\2 SHAN(V,D) 1.6 cm\S\2 AI max angeli 343.1 cm/sec AI max PG 47.1 mmHg AI dec slope 132.3 cm/sec\S\2 AI P1/2t 759.5 msec LV V1 max PG 2.9 mmHg LV V1 max 84.7 cm/sec PA V2 max 85.9 cm/sec PA max PG 3.0 mmHg PI max angeli 182.4 cm/sec PI max PG 13.3 mmHg PI dec slope 104.5 cm/sec\S\2 PI P1/2t 511.1 msec TR max angeli 277.8 cm/sec
[2017-01-31] MEDS ORDERED: SIMVASTATIN 10 MG TAB PO SCH (21:00)
[2017-01-31 21:53] LABS: PARTIAL THROMBOPLASTIN RATIO 2.4
[2017-02-01 00:27] VITALS: BP 127/71; PULSE 57; TEMP 37.1; O2SAT 99
[2017-02-01 04:34] VITALS: BP 120/57; PULSE 57; TEMP 37; O2SAT 96
[2017-02-01] MEDS: SODIUM CHLORIDE 0.9% 1000ML 1,000 ML IV SCH (06:06)
[2017-02-01 07:26] VITALS: BP 118/65; PULSE 59; TEMP 36.7; O2SAT 96
[2017-02-01 07:55] LABS: BASO % 0.8 %; BASO ABS # 0.04 K/uL (0-0.2); COMPLETE YES; EOS % 2.3 %; HEMATOCRIT 36.9 % (37-47); IG% 0.2 %; LYMPH % 39.1 %; MEAN CELL VOLUME 84.1 fL (80-100); MEAN CORPUSCULAR HEMOGLOBIN 27.8 pg (25-34); MEAN CORPUSCULAR HGB CONC 33.1 g/dl (32-36); MEAN PLATELET VOLUME 10.9 fL (7.4-10.4); MONO % 13.7 %; NEUT % 43.9 %; PLATELET COUNT 139 K/uL (130-400); RED BLOOD COUNT 4.39 M/uL (4.2-5.4); WHITE BLOOD COUNT 5.11 K/uL (4.8-10.8)
[2017-02-01 08:17] LABS: PARTIAL THROMBOPLASTIN RATIO 3.5
[2017-02-01] MEDS: INSULIN ASPART 100 UNITS/ML 3 ML PEN SC SCH ×2 (08:18→12:18)
[2017-02-01 08:37] LABS: BUN/CREATININE RATIO 17.2 (10-20); CALCIUM 8.3 mg/dl (8.5-10.1); CREATININE 1.3 mg/dl (0.60-1.20); POTASSIUM 3.7 mmol/L (3.5-5.1)
--- NOTE | 2017-02-01 08:37 | Gastrointestinal Consultation ---
Gastrointestinal Consultation Date of Consultation: Feb 01, 2017 Consulting Physician: Mackenzie Reason for Consultation: history of AVM, needs anticoagulation History of Present Illness Patient is a 86 year old female with PMH significant for CKD-3, CVA, T2DM, HTN, venous insufficiency, AFIB, [place], thoracic aortic aneurysm. She was admitted for SOB and found to have a PE. GI is consulted for history of AVM's. Patient was seen and examined this morning. She is oriented to person, place and time. She reports she has never had a GI bleed before, but has had a few procedures done for anemia in the past. She is unsure if she has a diagnosis of AVMs. Does not remember getting a VCE completed. She has no GI complaints. Denies chest pain, SOB, N/V/D, black/bloody stools/emesis. Her daughter is coming in this afternoon and would like me to further address her past medical history with her as she is sometimes forgetful. HGB has been stable this admission. She is on a heparin gtt. EGD 12/24/13: erythema of the distal esophageal mucosa, small HH, patchy erythema in the antral region, EGD 03/28/07: Normal esophagus, stomach, and duodenum. Biopsies taken from duodenum. Colonoscopy 03/28/07: External hemorrhoids seen on retroflexion. Normal exam. No source of iron deficiency found. Past Medical/Surgical History Medical Problems: (1) Left sided chest pain Status: Acute (2) Precordial chest pain Status: Acute (3) Pulmonary infiltrate in left lung on CXR Status: Acute Family History Diabetes mellitus FH: heart disease Social History Smoking Status: Never Smoker Alcohol Use: none Drug Use: none Marital Status: Occupation Status: retired Allergies Coded Allergies: No Known Allergies (Verified , 02/04/16) Current Medications Home Meds and Scripts Medications Dose Route/Sig Max Daily Dose Days Date Category Viactiv (Calcium W/ Vitamins D & K) 1 Chw Chw 1 Tab PO DAILY 01/30/17 Reported Sotalol Hcl 80 Mg Tab 40 Mg PO BID 01/30/17 Reported Ferrous Sulfate 325 Mg Tab 325 Mg PO DAILY 01/30/17 Reported Aspirin Ec (Aspirin) 81 Mg Tab 81 Mg PO DAILY 01/30/17 Reported Zocor (Simvastatin) 10 Mg Tab 10 Mg PO QPM 02/04/16 Reported Review of Systems Constitutional: No chills, No fever Respiratory: No cough, No shortness of breath Cardiac: + edema (unchanged lower extremity edema, equal bilaterally in ankles) , No chest pain Abdomen: No GI bleeding, No constipation, No diarrhea, No nausea, No pain, No vomiting Physical Exam Date Time Temp Pulse Resp B/P Pulse Ox O2 Delivery O2 Flow Rate FiO2 02/01/17 07:26 36.7 59 18 118/65 96 Room Air 02/01/17 04:34 37.0 57 18 120/57 96 Room Air 02/01/17 04:00 Room Air 02/01/17 00:27 37.1 57 18 127/71 99 Room Air 02/01/17 00:00 Room Air 01/31/17 21:02 65 130/78 01/31/17 20:00 Room Air 01/31/17 19:55 36.5 65 18 151/66 97 Room Air 01/31/17 16:00 93 Room Air 01/31/17 15:00 37.0 56 18 157/74 96 Room Air 01/31/17 12:02 37.0 58 18 177/74 97 Room Air 01/31/17 09:59 57 134/70 General Appearance: no apparent distress Eyes: PERRL ENT: hearing grossly normal Neck: supple, trachea midline Respiratory/Chest: lungs clear, normal breath sounds, no respiratory distress, no accessory muscle use Cardiovascular: regular rate, rhythm, no edema, no JVD, no murmur Abdomen: normal bowel sounds, non tender, soft, no organomegaly, no pulsatile mass Neurologic/Psych: alert, normal mood/affect, oriented x 3 Skin: normal color, warm/dry Laboratory Results Last 24 Hours Test 01/31/17 13:13 01/31/17 16:56 01/31/17 20:40 01/31/17 21:29 Bedside Glucose 112 mg/dl 94 mg/dl 140 mg/dl Activated Partial Thromboplast Time 61.8 SECONDS Partial Thromboplastin Ratio 2.4 Test 02/01/17 07:40 02/01/17 08:02 White Blood Count 5.11 K/uL Red Blood Count 4.39 M/uL Hemoglobin 12.2 g/dL Hematocrit 36.9 % Mean Corpuscular Volume 84.1 fL Mean Corpuscular Hemoglobin 27.8 pg Mean Corpuscular Hemoglobin Concent 33.1 g/dl Platelet Count 139 K/uL Mean Platelet Volume 10.9 fL Neutrophils (%) (Auto) 43.9 % Lymphocytes (%) (Auto) 39.1 % Monocytes (%) (Auto) 13.7 % Eosinophils (%) (Auto) 2.3 % Basophils (%) (Auto) 0.8 % Neutrophils # (Auto) 2.24 K/uL Lymphocytes # (Auto) 2.00 K/uL Monocytes # (Auto) 0.70 K/uL Eosinophils # (Auto) 0.12 K/uL Basophils # (Auto) 0.04 K/uL RDW Standard Deviation 43.8 fL RDW Coefficient of Variation 14.3 % Immature Granulocyte % (Auto) 0.2 % Immature Granulocyte # (Auto) 0.01 K/uL Bedside Glucose 110 mg/dl Impression Patient is a 86 year old female with a reported history of AVMs (unverified by patient and unable to find records) who was admitted for SOB and found to have a PE. She was started on a heparin GTT. Potential risks of GI bleeding if diagnosis of AVM is accurate discussed with the patient, she verbalized understanding. No evidence of GI bleed at this time. Plan Trend H&H while admitted Monitor stools for s/s of GI bleeding 20 mg PPI daily as prophylaxis No plan for EGD/Colonoscopy as patient verbalized understanding of potential risks Obtain records of reported GI bleed and AVM's - discuss with patient's daughter. Call with questions. I have seen and examined the patient with Oly Perez whose note reflects our findings and plan.
[2017-02-01] MEDS: CALCIUM 600MG + VIT D 400 IU TAB PO SCH (08:39)
[2017-02-01] MEDS: ASPIRIN 81 MG ECTAB PO SCH (08:39)
[2017-02-01] MEDS: FERROUS SULFATE 325 MG TAB PO SCH (08:39)
[2017-02-01] MEDS: SOTALOL HCL 80 MG TAB PO SCH (08:41)
[2017-02-01] MEDS: HEPARIN 25,000 UNIT/500ML D5W 500 ML IV PRN (08:54)
--- NOTE | 2017-02-01 10:21 | DIAGNOSTIC IMAGING REPORT ---
CHEST CTA for PULMONARY ARTERIES CT DOSE: 411.99 mGycm HISTORY: Chest pain dyspnea TECHNIQUE: Multiaxial CT images of the chest were performed following the intravenous administration of contrast to evaluate the pulmonary arteries. Maximal intensity projection images were also obtained. COMPARISON STUDY: R2 2015 FINDINGS: Moderate atherosclerotic change thoracic aorta. Aortic root measures 3.8 cm. No evidence for dissection. Pulmonary arterial vasculature enhances appropriately. Upper lungs are considered clear. Basilar interstitial prominence bilaterally. IMPRESSION: 1. No evidence for pulmonary embolus. 2. Mild bibasilar nonspecific interstitial prominence. Electronically signed by: William Hobbs M.D. 02/01/2017 10:20 AM Dictated Date/Time: 02/01/2017 10:15 AM
[2017-02-01 11:23] VITALS: BP 186/95; PULSE 65; TEMP 36.3; O2SAT 91
--- NOTE | 2017-02-01 11:32 | Cardiology Follow-Up ---
Subjective General Date of Service: Feb 01, 2017. Chief Complaint: atypical chest pain Pt evaluation today including: conversation w/ patient, physical exam, chart review, lab review, review of studies, review of inpatient medication list History of Present Illness Patient feeling well. offers no acute complaints. Denies chest pain or SOB. No recurrent symptoms of admitting complaint, described as a "weird sensation". No palpitations or tachy palpitations. Maintained NSR/Sinus lewis on telemetry without arrhythmias. Allergies Coded Allergies: No Known Allergies (Verified , 02/04/16) Social History Smoking Status: Never Smoker Hx Tobacco Use In Past Year?: No Hx Alcohol Use - Type And Amou: No Hx Substance Use - Type And Am: No Problem List Medical Problems: (1) Left sided chest pain Status: Acute (2) Precordial chest pain Status: Acute (3) Pulmonary infiltrate in left lung on CXR Status: Acute Review of Systems Respiratory: No cough, No dyspnea at rest, No dyspnea on exertion, No hemoptysis, No shortness of breath, No sputum, No wheezing Cardiac: No PND, No chest pain, No edema, No orthopnea, No palpitations Physical Exam Vital Signs Last Vital Signs Documentation Date Time Temp Pulse Resp B/P Pulse Ox O2 Delivery O2 Flow Rate FiO2 02/01/17 11:23 36.3 65 18 186/95 91 Room Air Physical Exam Constitutional: General Apperance: heathly-appearing Level of Distress: NAD Ambulation: ambulating normally Psychiatric: Mental Status: active & alert Orientation: to time, to place, to person Eyes: Pupils: PERRLA Neck: supple Lungs: Respiratory effort: no dyspnea Auscultation: breath sounds normal, no wheezing, no rales/crackles, no rhonchi Cardiovascular: Heart Auscultation: RRR, normal S1, normal S2, II/ ALVARO Extremities: no edema Assessment and Plan Assessment and Plan 1. Atypical chest pain with possible finding of pulmonary embolus on VQ scan, chest CT negative for PE 2. Paroxysmal atrial fibrillation, controlled in NSR on renal dose sotalol 40 mg BID. Not on anticoagulation therapy given AV malformations. On ASA 81 mg daily. 3. 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 4. Diabetes mellitus. 5. Hypertension, situational. Controlled in outpatient setting. patient admits to anxiety here. Recommendations: Negative cardiac enzymes x2 Normal/nonischemic EKG x2. Echo without wall motion abnormalities. * Sinus bradycardia was present during the echocardiogram examination. * There is mild concentric left ventricular hypertrophy. * The basal septum is thickened and angulated consistent with sigmoid septum. * No regional wall motion abnormalities noted. * The aortic valve is mildly calcified. * Mild valvular aortic stenosis. * Mild aortic regurgitation. * There is mild tricuspid regurgitation. * Doppler findings do not suggest pulmonary hypertension. * The calculated pulmonary artery systolic pressure is 37 mm Hg (upper limit of normal). * The right ventricle is normal in size and function. CT scan is negative for PE. Can stop IV heparin. No further cardiac testing warranted at this time. Would recommend f/u of BP as outpatient with PCP. Likely situational here. no history of HTN. Case discussed with Dr. Vaz. Stable for discharge from cardiac perspective. Will sign off. Please call on-call provider with additional questions or concerns. CARDIOLOGY ATTENDING ADDENDUM: The patient was seen and personally examined. Agree with Lorena Mccord PA-C's findings and plans as documented above. Laboratory Results Last 24 Hours Test 01/31/17 13:13 01/31/17 16:56 01/31/17 20:40 01/31/17 21:29 Bedside Glucose 112 mg/dl 94 mg/dl 140 mg/dl Activated Partial Thromboplast Time 61.8 SECONDS Partial Thromboplastin Ratio 2.4 Test 02/01/17 07:40 02/01/17 08:02 White Blood Count 5.11 K/uL Red Blood Count 4.39 M/uL Hemoglobin 12.2 g/dL Hematocrit 36.9 % Mean Corpuscular Volume 84.1 fL Mean Corpuscular Hemoglobin 27.8 pg Mean Corpuscular Hemoglobin Concent 33.1 g/dl Platelet Count 139 K/uL Mean Platelet Volume 10.9 fL Neutrophils (%) (Auto) 43.9 % Lymphocytes (%) (Auto) 39.1 % Monocytes (%) (Auto) 13.7 % Eosinophils (%) (Auto) 2.3 % Basophils (%) (Auto) 0.8 % Neutrophils # (Auto) 2.24 K/uL Lymphocytes # (Auto) 2.00 K/uL Monocytes # (Auto) 0.70 K/uL Eosinophils # (Auto) 0.12 K/uL Basophils # (Auto) 0.04 K/uL RDW Standard Deviation 43.8 fL RDW Coefficient of Variation 14.3 % Immature Granulocyte % (Auto) 0.2 % Immature Granulocyte # (Auto) 0.01 K/uL Activated Partial Thromboplast Time 91.0 SECONDS Partial Thromboplastin Ratio 3.5 Sodium Level 144 mmol/L Potassium Level 3.7 mmol/L Chloride Level 109 mmol/L Carbon Dioxide Level 26 mmol/L Anion Gap 9.0 mmol/L Blood Urea Nitrogen 22 mg/dl Creatinine 1.30 mg/dl Est Creatinine Clear Calc Drug Dose 28.0 ml/min Estimated GFR () 43.0 Estimated GFR (Non- 37.1 BUN/Creatinine Ratio 17.2 Random Glucose 105 mg/dl Calcium Level 8.3 mg/dl Bedside Glucose 110 mg/dl
[2017-02-01 11:57] VITALS: BP 161/73; PULSE 57
[2017-02-01 13:29] VITALS: BP 161/73; PULSE 57; TEMP 36.3; O2SAT 91
--- NOTE | 2017-02-01 13:59 | Discharge Instructions ---
Discharge Instructions Date of Service Feb 01, 2017. Admission Reason for Admission: Chest Pain Discharge Discharge Diagnosis / Problem: CHEST PAIN Discharge Goals Goal(s): Decrease discomfort Activity Recommendations Activity Limitations: resume your previous activity . Instructions / Follow-Up Instructions / Follow-Up FOLLOWUP WITH FAMILY DOCTOR Elma Alfonso ON February AT 12:50PM Current Hospital Diet Patient's current hospital diet: AHA Diet (Heart Healthy) Discharge Diet Recommended Diet: AHA Diet (Heart Healthy) Pending Studies Studies pending at discharge: no Medical Emergencies . Who to Call and When: Medical Emergencies: If at any time you feel your situation is an emergency, please call 911 immediately. . Non-Emergent Contact Non-Emergency issues call your: Primary Care Provider . . "Provider Documentation" section prepared by Davis Guzman. VTE Core Measure Inpt VTE Proph given/why not?: Other Anticoagulation (IV HEPARIN)
--- NOTE | 2017-02-01 19:21 | Progress Note ---
Internal Med Progress Note Date of Service: Feb 01, 2017. Provider Documentation: SUBJECTIVE: denies chest pain or sob ambulating ok afebrile no cough ok to go home OBJECTIVE: Vital Signs-as noted below Exam: General-alert and oriented x 3 Not in distress ENT-normal hearing Neck-no neck masses Lungs-cta b/l no wheezing no crackles Heart-s1 and s2 regular rate and rhythm no murmurs' Abdomen-soft bowel sounds present non tender no distension Extremities-no edema no erythema Neuro-alert and awake and oriented moves extremities Lab data as noted below. ASSESSMENT & PLAN: 86 year old female with history of Paroxysmal Atrial Fibrillation on Aspirin, CVA, DM Diet Controlled, CKD 3, presenting with chest pain. ATYPICAL CHEST PAIN currently asymptomatic serial CE and ekg unremarkable await echo if echo unremarkable plan to d/c home seen by cardiology and appreciate inputs D dimer elevated venous Doppler negative but v/q scan high probability hx of GI bleed and AVM in colon- no records found started on iv heparin had ct chest pe study rtoday 02/01/17 and was negative for PE. 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 CKD 3 baseline crea 1.3-1.5 gentle fluids for plan for ct chest to rule out PE cr 1.3 today at discharge at baseline HISTORY OF CVA on Aspirin, Statin DM diet controlled HISTORY OF THORACIC AORTA ANEURYSM 3.1cm per CT Abd in 2016 on Aspirin, Statin Discharged home Vital Signs: Date Time Temp Pulse Resp B/P Pulse Ox O2 Delivery O2 Flow Rate FiO2 02/01/17 13:29 36.3 57 18 91 Room Air 02/01/17 12:00 Room Air 02/01/17 11:57 57 161/73 02/01/17 11:23 36.3 65 18 186/95 91 Room Air 02/01/17 08:00 Room Air 02/01/17 07:26 36.7 59 18 118/65 96 Room Air 02/01/17 04:34 37.0 57 18 120/57 96 Room Air 02/01/17 04:00 Room Air 02/01/17 00:27 37.1 57 18 127/71 99 Room Air 02/01/17 00:00 Room Air 01/31/17 21:02 65 130/78 01/31/17 20:00 Room Air 01/31/17 19:55 36.5 65 18 151/66 97 Room Air Lab Results: Results Past 24 Hours Test 01/31/17 20:40 01/31/17 21:29 02/01/17 07:40 02/01/17 08:02 Range/Units Bedside Glucose 140 110 70-90 mg/dl Activated Partial Thromboplast Time 61.8 91.0 21.0-31.0 SECONDS Partial Thromboplastin Ratio 2.4 3.5 White Blood Count 5.11 4.8-10.8 K/uL Red Blood Count 4.39 4.2-5.4 M/uL Hemoglobin 12.2 12.0-16.0 g/dL Hematocrit 36.9 37-47 % Mean Corpuscular Volume 84.1 80-100 fL Mean Corpuscular Hemoglobin 27.8 25-34 pg Mean Corpuscular Hemoglobin Concent 33.1 32-36 g/dl Platelet Count 139 130-400 K/uL Mean Platelet Volume 10.9 7.4-10.4 fL Neutrophils (%) (Auto) 43.9 % Lymphocytes (%) (Auto) 39.1 % Monocytes (%) (Auto) 13.7 % Eosinophils (%) (Auto) 2.3 % Basophils (%) (Auto) 0.8 % Neutrophils # (Auto) 2.24 1.4-6.5 K/uL Lymphocytes # (Auto) 2.00 1.2-3.4 K/uL Monocytes # (Auto) 0.70 0.11-0.59 K/uL Eosinophils # (Auto) 0.12 0-0.5 K/uL Basophils # (Auto) 0.04 0-0.2 K/uL RDW Standard Deviation 43.8 36.4-46.3 fL RDW Coefficient of Variation 14.3 11.5-14.5 % Immature Granulocyte % (Auto) 0.2 % Immature Granulocyte # (Auto) 0.01 0.00-0.02 K/uL Sodium Level 144 136-145 mmol/L Potassium Level 3.7 3.5-5.1 mmol/L Chloride Level 109 98-107 mmol/L Carbon Dioxide Level 26 21-32 mmol/L Anion Gap 9.0 3-11 mmol/L Blood Urea Nitrogen 22 7-18 mg/dl Creatinine 1.30 0.60-1.20 mg/dl Est Creatinine Clear Calc Drug Dose 28.0 ml/min Estimated GFR () 43.0 Estimated GFR (Non- 37.1 BUN/Creatinine Ratio 17.2 10-20 Random Glucose 105 70-99 mg/dl Calcium Level 8.3 8.5-10.1 mg/dl Test 02/01/17 11:42 Range/Units Bedside Glucose 117 70-90 mg/dl
--- NOTE | 2017-02-01 19:28 | Discharge Summary ---
Discharge Summary Date of Service Feb 01, 2017. Discharge Summary Admission Date: Jan 30, 2017 at 21:06 Discharge Date: Feb 01, 2017 Discharge Disposition: Home Principal Diagnosis: CHEST PAIN Secondary Diagnoses/Problems: (1) Cerebrovascular disease, arteriosclerotic, post-stroke Status: Chronic (2) CKD (chronic kidney disease), stage III Status: Chronic (3) DM type 2 (diabetes mellitus, type 2) Status: Chronic (4) Dyslipidemia Status: Chronic (5) Glaucoma Status: Chronic (6) H/O herpes zoster Status: Chronic (7) Hypertension Status: Chronic (8) Iron deficiency anemia Status: Chronic (9) PAF (paroxysmal atrial fibrillation) Status: Chronic (10) Stroke Status: Resolved (11) Venous insufficiency Status: Chronic Procedures: VENOUS DOPPLER: 1. There is no sonographic evidence of deep venous thrombosis identified in the right or left lower extremity. 2. Small bilateral Gaines's cysts. LUNG SCAN: High probability of pulmonary embolus left lung base CT CHEST WITH CONTRAST: 1. No evidence for pulmonary embolus. 2. Mild bibasilar nonspecific interstitial prominence. ECHO: Sinus bradycardia was present during the echocardiogram examination. * There is mild concentric left ventricular hypertrophy. * The basal septum is thickened and angulated consistent with sigmoid septum. * No regional wall motion abnormalities noted. * The aortic valve is mildly calcified. * Mild valvular aortic stenosis. * Mild aortic regurgitation. * There is mild tricuspid regurgitation. * Doppler findings do not suggest pulmonary hypertension. * The calculated pulmonary artery systolic pressure is 37 mm Hg (upper limit of normal). * The right ventricle is normal in size and function. Consultations: CARDIOLOGY GI Medication Reconciliation Continued Medications: Aspirin (Aspirin Ec) 81 Mg Tab 81 MG PO DAILY Calcium W/ Vitamins D & K (Viactiv) 1 Chw Chw 1 TAB PO DAILY Ferrous Sulfate (Ferrous Sulfate) 325 Mg Tab 325 MG PO DAILY Simvastatin (Zocor) 10 Mg Tab 10 MG PO QPM, TAB Sotalol Hcl (Sotalol Hcl) 80 Mg Tab 40 MG PO BID, TAB Admission Information HPI (per Admitting provider): 86 year old female with history of Paroxysmal Atrial Fibrillation on Aspirin, CVA, DM Diet Controlled, CKD 3, presenting with chest pain. Patient follows with Dr. Betancur for Primary Care and Dr. Rivas for Cardiology. She was in her usual state of health until this afternoon around 12noon, while changing bedsheets, patient experienced left sided chest pain- mild-moderate, dull, non radiating, no dyspnea/palpitations/dizziness/diaphoresis. She rested and the pain seemed to have subsided after 2 minutes. The chest pain then recurred while at rest prompting patient to take 1 nitroglycerin which did not help relieve her symptoms. She reports that the chest pain was coming and going throughout the afternoon. She then called her PCP which advised ER consult. Patient admits to carrying a very heavy vacuum cleaner greaser upstairs (14 steps) yesterday. At the ER, patient was received with BP 175/76. EKG sinus lewis with no signs of acute ischemia. Cardiac markers x 1 negative. CXR showed possible left infiltrate. On exam, patient seen resting in bed, comfortable. Pain has not recurred since arrival at the ER. Denies active chest pain, dyspnea, palpitations, dizziness, nausea. No cough, sputum, fever/chills. No other symptoms. Physical Exam (per Admitting): General Appearance: WD/WN, no apparent distress Head: normocephalic, atraumatic Eyes: normal inspection, PERRL, sclerae normal ENT: normal ENT inspection, pharynx normal, + pertinent finding ((+) hearing aids) Neck: supple, no adenopathy, thyroid normal, no JVD, trachea midline Respiratory/Chest: chest non-tender, lungs clear, normal breath sounds, no respiratory distress, no accessory muscle use, + pertinent finding (no chest wall tenderness) Cardiovascular: regular rate, rhythm, no edema, no JVD, no murmur Abdomen/GI: normal bowel sounds, non tender, soft Back: normal inspection, no CVA tenderness Extremities/Musculoskelatal: normal inspection, no calf tenderness, no pedal edema, normal range of motion 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 ATYPICAL CHEST PAIN currently asymptomatic serial CE and ekg unremarkable await echo if echo unremarkable plan to d/c home seen by cardiology and appreciate inputs D dimer elevated venous Doppler negative but v/q scan high probability hx of GI bleed and AVM in colon- no records found started on iv heparin had ct chest pe study rtoday 02/01/17 and was negative for PE. 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 Discharge Instructions Discharge Instructions Date of Service Feb 01, 2017. Admission Reason for Admission: Chest Pain Discharge Discharge Diagnosis / Problem: CHEST PAIN Discharge Goals Goal(s): Decrease discomfort Activity Recommendations Activity Limitations: resume your previous activity . Instructions / Follow-Up Instructions / Follow-Up FOLLOWUP WITH FAMILY DOCTOR Elma Alfonso ON February AT 12:50PM Current Hospital Diet Patient's current hospital diet: AHA Diet (Heart Healthy) Discharge Diet Recommended Diet: AHA Diet (Heart Healthy) Pending Studies Studies pending at discharge: no Medical Emergencies . Who to Call and When: Medical Emergencies: If at any time you feel your situation is an emergency, please call 911 immediately. . Non-Emergent Contact Non-Emergency issues call your: Primary Care Provider . . "Provider Documentation" section prepared by Davis Guzman. VTE Core Measure Inpt VTE Proph given/why not?: Other Anticoagulation (IV HEPARIN)
== END 2017-02-01 14:38 | disposition home or self-care (01) ==
LOC: ENRESERVDT → ENRESERVTM → C.EDB 16:46 → C.MED 21:06
PROVIDERS: ADMIT Internal Medicine; ATTEND Internal Medicine
DX: R07.89 Other chest pain (principal); I48.0 Paroxysmal atrial fibrillation; E11.9 Type 2 diabetes mellitus without complications; E78.5 Hyperlipidemia, unspecified; D50.9 Iron deficiency anemia, unspecified; I71.2 Thoracic aortic aneurysm, without rupture; N18.3 Chronic kidney disease, stage 3 (moderate); I12.9 Hypertensive chronic kidney disease with stage 1 through stage 4 chronic kidney disease, or unspecified chronic kidney disease; I87.2 Venous insufficiency (chronic) (peripheral); Z90.49 Acquired absence of other specified parts of digestive tract; Z79.82 Long term (current) use of aspirin; Z86.73 Personal history of transient ischemic attack (TIA), and cerebral infarction without residual deficits

== ENCOUNTER 2019-04-03 15:42 | Inpatient (IN) ==
[2019-04-03] MEDS ORDERED: SODIUM CHLORIDE 0.9% 1000ML 250 ML IV ONE (17:14)
[2019-04-03 17:32] LABS: Basophils # (auto) 0.07 K/uL (0-0.2); Basophils % (auto) 0.5 %; Eosinophils # (auto) 0.61 K/uL (0-0.5); Eosinophils % (auto) 4.6 %; Hematocrit (blood only) 35.7 % (37-47); Hemoglobin 12.1 g/dL (12.0-16.0); Immature Granulocytes # (auto) 0.07 K/uL (0.00-0.02); Immature Granulocytes % (auto) 0.5 %; Lymphocytes # (auto) 2.33 K/uL (1.2-3.4); Lymphocytes % (auto) 17.6 %; Mean Corpuscular Hgb Conc 33.9 g/dL (32-36); Mean Platelet Volume 10.1 fL (7.4-10.4); Monocytes # (auto) 1.72 K/uL (0.11-0.59); Neutrophils # (auto) 8.44 K/uL (1.4-6.5); Neutrophils % (auto) 63.8 %; Platelet Count 301 K/uL (130-400); RDW Coefficient of Variation 13.1 % (11.5-14.5); RDW Standard Deviation 39.7 fL (36.4-46.3); White Blood Count 13.24 K/uL (4.8-10.8)
--- NOTE | 2019-04-03 17:38 | XRay Report ---
SINGLE VIEW CHEST CLINICAL HISTORY: Generalized weakness. FINDINGS: 2 AP, portable, upright chest radiographs are compared to study dated 02/04/2016 and correlat ed with chest CT dated 02/01/2017. The examination is degraded by portable technique and patient rotat ion. The heart is top normal for projection and there is atherosclerotic calcification of the thorac ic aorta. There is bibasilar atelectasis. No airspace consolidation or large pleural effusion is iden tified. There are numerous (at least 5) pulmonary nodules measure up to 12 mm. These are new from saeed or examinations. No pneumothorax is seen. The skeletal structures are osteopenic. The bony thorax is grossly intact. IMPRESSION: 1. There is no acute cardiopulmonary abnormality. 2. There are numerous (at least 5) round pulmonary nodules which are new from studies dated 2016. Thi s is highly concerning for metastatic disease. Electronically signed by: Mac Johnson M.D. 04/03/2019 5:37 PM
[2019-04-03 17:54] LABS: Albumin Level 2.8 gm/dl (3.4-5.0); BUN Creatinine Ratio 19.4 (10-20); Calcium 9.6 mg/dl (8.5-10.1); Creatinine Clr Calc Pharmacy 22.6 ml/min; Est GFR (African American) 32.8; Est GFR (Non-African American) 28.3; Potassium 3.9 mmol/L (3.5-5.1)
[2019-04-03 18:05] LABS: Albumin Globulin Ratio 0.6 (0.9-2); Bilirubin,Total 0.8 mg/dl (0.2-1); Total Protein 7.8 gm/dl (6.4-8.2)
--- NOTE | 2019-04-03 18:45 | CT Scan Report ---
CT SCAN OF THE BRAIN WITHOUT IV CONTRAST CLINICAL HISTORY: Generalized weakness. COMPARISON STUDY: CT of the brain dated 02/15/2007. TECHNIQUE: Unenhanced axial CT scan of the brain is performed from the vertex to the skull base. A do se lowering technique was utilized adhering to the principles of ALARA. 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 Wallerian degeneration is noted in the right aspect of the rivera. There are age-related involut ional changes noting mild subcortical and periventricular microangiopathic change. There is no hemor rhage, mass effect, or evidence of acute territorial ischemia by CT criteria. Posadas-white matter diffe rentiation is preserved. No extra-axial fluid collection is seen. Mineralization is noted in the basa l ganglia. Ventricles, sulci, cisterns: Prominent secondary to involutional change. Intracranial vasculature: There is atherosclerotic calcification of the cavernous carotid and vertebr al arteries. Calvarium: Unremarkable. Sinuses and mastoids: The visualized paranasal sinuses are clear. The mastoid air cells are well pneu matized. Orbits: The bony orbits are grossly intact. IMPRESSION: Senescent change and remote infarct as above with no hemorrhage, mass effect, or evidenc e of acute territorial ischemia by CT criteria. Electronically signed by: Mac Johnson M.D. 04/03/2019 6:44 PM
--- NOTE | 2019-04-03 19:13 | CT Scan Report ---
CT SCAN OF THE CHEST, ABDOMEN, AND PELVIS WITHOUT IV CONTRAST; CT SCAN OF THE LUMBAR SPINE WITHOUT IV CONTRAST CLINICAL HISTORY: Pulmonary nodules seen by chest x-ray. Back pain. Lower extremity weakness. COMPARISON STUDY: Chest x-ray dated 04/03/2019. Chest CT dated 02/01/2017. Abdominal CT dated 7. TECHNIQUE: CT scan of the chest, abdomen, and pelvis was performed from the thoracic inlet to the pro ximal femora. Additionally, CT scan of the lumbar spine is performed from the lower thoracic spine to sacrum. Images for all of the examination are reviewed in the axial, sagittal, and coronal planes. I V contrast was number administered for this examination as per the referring clinician. Note that the examination was performed in significantly suboptimal fashion without IV contrast. A dose lowering technique was utilized adhering to the principles of ALARA. CT DOSE: 1752.57 mGy.cm FINDINGS: CHEST: Thyroid: Imaged portions of the thyroid gland are normal in size and attenuation. A 12 mm low-attenua tion nodule is seen in the right lobe. Thoracic aorta: There is atherosclerotic calcification of the thoracic aorta. There is mild aneurysma l dilatation of the ascending thoracic aorta which measures up to 4.1 cm. The remainder of the thorac ic aorta is normal in caliber, and the arch demonstrates standard 3-vessel anatomy. Heart: The heart is mildly enlarged and without pericardial effusion. The coronary arteries and darcy l annulus are densely calcified. The pulmonary trunk is dilated measuring up to 3.9 cm. This suggests pulmonary artery hypertension. Lungs and pleural spaces: There is no airspace consolidation or pleural effusion. Scarring/atelectasi s is noted at both lung bases. The trachea and central airways are clear. There are numerous (greater than 30) pulmonary nodules scattered throughout both lungs. The largest is in the right lower lobe s een on image #152 and measures 1.5 cm. These are new from the 2017 examination and typical appearance for multifocal pulmonary metastatic disease. Mediastinum: There are scattered subcentimeter mediastinal lymph nodes. These are not pathologically enlarged by size criteria. Cat: Not well assessed without IV contrast. Axillae: There is no axillary lymphadenopathy. Bony thorax: The skeletal structures are osteopenic. Degenerative change and kyphoscoliosis are noted throughout the thoracic spine. No lytic or blastic lesions are identified. ABDOMEN AND PELVIS: Liver: The unenhanced liver is normal in size, contour, and attenuation. There is mild central intrah epatic or ductal dilatation. Gallbladder: Surgically absent noting clips in the gallbladder fossa. Spleen: Normal in size and attenuation. Pancreas: The unenhanced pancreas is atrophic and grossly unremarkable. Adrenal glands: Unremarkable. Kidneys: The unenhanced kidneys are atrophic. There is a large infiltrative mass involving the mid to upper pole of the right kidney. This is not well delineated without IV contrast but likely measures at least 6 cm. There is expansion of the right renal pelvis, and the mass lesion likely invades the c ollecting system. There is mild stranding around the right kidney. There are at least 2 right renal c alculi which measure up to 6 mm. No left renal calculi are identified. An extrarenal pelvis is noted on the left. No left-sided hydronephrosis is seen, and there is no evidence of contour deforming mass lesion in the left kidney. Abdominal vasculature: There is advanced atherosclerotic calcification and mild ectasia of the abdomi nal aorta. Bowel: There is no bowel obstruction. The appendix is well-visualized and normal. There is a small d uodenal diverticulum. Peritoneum: There is no intraperitoneal free air or abdominal ascites. Lymphadenopathy: There are mildly enlarged retroperitoneal lymph nodes. An enlarged retrocaval lymph node on image #140 measures 1.3 cm in short axis. Pelvic viscera: There is gas within the bladder lumen, likely related to recent instrumentation. The bladder is otherwise normal in appearance. A wire or intrauterine device is present within the uterus . The endometrium appears thickened for age, measuring up to 15 mm. The ovaries appear enlarged for a ge, measuring up to 3.4 cm. Skeletal structures: The skeletal structures are osteopenic. Sclerotic change is noted in the sacroil iac joints. Arthritic change is also seen in the hips. No lytic or blastic lesions are seen. See misael w for discussion of the lumbar spine. LUMBAR SPINE: Vertebral body height is maintained throughout the lumbar spine. There is minimal anter olisthesis at L4-L5. Alignment is otherwise preserved. Mild lumbar levocurvature is centered at L4. T he transverse and spinous processes are intact. There is no evidence of spondylolysis. There is mild multilevel disc space narrowing. There is a large posterior disc bulges seen at L4-L5. There is likel y high-grade central canal stenosis at this level. Smaller disc bulges are seen at L3-L4 and L5-S1. O nly mild facet arthropathy is identified. The paraspinous soft tissues are within normal limits. IMPRESSION: 1. Suboptimal examination without oral and IV contrast. 2. There is a large infiltrative mass lesion identified involving the upper pole and interpolar regio n of the right kidney. This likely invades the right renal collecting system, and this should be cons idered renal cell carcinoma until otherwise. 3. 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 4. Mildly enlarged retroperitoneal lymph nodes likely represent metastatic involvement. 5. There is no airspace consolidation or pleural effusion. 6. Mild cardiac enlargement and mild aneurysmal dilatation of the ascending thoracic aorta. 7. A wire or intrauterine device is noted within the uterus. 8. The endometrium is abnormally thickened for age, measuring up to 15 mm. This is not well evaluated by CT. Nonemergent gynecology follow-up is recommended. 9. The ovaries appear enlarged for age. 10. No acute bony abnormality is seen involving the lumbar spine. There is no evidence of osseous met astatic disease. 11. There is likely high-grade central canal stenosis at L4-L5 secondary to a posterior disc bulge an d hypertrophy of the ligamentum flavum. 12. There is an air-fluid level within the bladder lumen, likely related to recent instrumentation. C orrelation with clinical findings and urinalysis will be required. 13. Nonobstructing right renal calculi. 14. Additional findings as above. Electronically signed by: Mac Johnson M.D. 04/03/2019 7:11 PM
--- NOTE | 2019-04-03 20:04 | Emergency Department Note ---
Entered by Anna Negron acting as a scribe for Justin Arriola MD History of Present Illness General Chief complaint: Leg Weakness, Bilateral Stated complaint: PROFOUND WEAKNESS, LOW IRON INABLE TO WALK Time Seen by Provider: 04/03/19 17:02 Source: family (daughters) History of Present Illness Provider complaint: bilateral leg weakness Onset (ago): week(s) 2 Location: lower extremity (bilateral) Pain Consistency: + other (worsened) Quality: + other (weakness) Associated symptoms: + cough and + other (+diarrhea, -bloody stools); no chest pain and no nausea/vomiting (-vomiting) The patient is a 88 year old female who presents to the Emergency Room with complaints of bilateral leg weakness. The patient�s family states that the patient just had her iron medication discontinued and she has gotten progressively weak in the past 2 weeks. They state that she went to her PCP and they conducted blood work that showed that her iron was low, but no other results. They state that she currently cannot walk because she is too weak. They state that the patient has a loss of appetite, diarrhea, and a cough. They report that the patient denies any bloody stools, chest pain, or vomiting. They state that she has a history of kidney disease, a stroke, high cholesterol, and chronic back pain. They state that she has no history of thyroid problems. They state that she has no recent transfusions. They report that the patient takes baby Aspirin and medication for her cholesterol. Home Medications Home Medications Medication Instructions Recorded Confirmed Type aspirin [Aspir-81] 81 mg PO HS 04/03/19 04/03/19 History calcium carbonate-vitamin D3 1 tab PO DAILY 04/03/19 04/03/19 History [Calcium 600 + D(3)] ferrous sulfate 325 mg PO DAILY 04/03/19 04/03/19 History simvastatin 10 mg PO PM 04/03/19 04/03/19 History sotalol 40 mg PO BID 04/03/19 04/03/19 History Allergies Allergy/AdvReac Type Severity Reaction Status Date / Time No Known Allergies Allergy Mild Verified 12/16/17 15:34 Past Med/Surg History Medical History Kidney disease (Acute) High cholesterol (Chronic) Social History Preferred Language: Luxembourgish Communication Ability: Effective Hat Cutter Required: Yes Beliefs That Will Affect Care: Episcopalian Episcopalian Beliefs: cathloic Current Living Situation: Alone Other Information That Helps Us Care for You: No Feels Safe at Home: Yes Safety Concerns: Feels Safe At This Time Smoking Status: Never smoker Do You Dip or Chew Tobacco: No Hx Alcohol Use: No Hx Substance Use: No Review of Systems See HPI for pertinent positives & negatives. and A total of 10 systems reviewed and were otherwise negative Physical Exam Vital Signs Vital Signs - 24 hr 04/03/19 15:53 04/03/19 17:08 04/03/19 17:38 Temperature 37.2 C Temperature Source Oral Sepsis Recent Fever Within 48 Hours No Sepsis New/Unexplained Change in Mental Status No Sepsis Action Taken by Nursing No Action Required Pulse Rate 77 68 Pulse Rate [Right Finger] Pulse Rate from SpO2 Sensor 68 Pulse Rhythm [Right Finger] Pulse Strength [Right Finger] Respiratory Rate 20 19 Respiratory Effort / Characteristics Respiratory Depth Respiratory Pattern Blood Pressure 123/75 143/67 H Blood Pressure [Right Arm] Blood Pressure Mean 91 92 Blood Pressure Mean [Right Arm] Blood Pressure Position Sitting Blood Pressure Position [Right Arm] Pulse Oximetry 98 96 98 Oxygen Delivery Method Room Air 04/03/19 17:40 04/03/19 17:50 04/03/19 18:00 Temperature Temperature Source Sepsis Recent Fever Within 48 Hours Sepsis New/Unexplained Change in Mental Status Sepsis Action Taken by Nursing Pulse Rate 72 69 68 Pulse Rate [Right Finger] Pulse Rate from SpO2 Sensor 72 69 67 Pulse Rhythm [Right Finger] Pulse Strength [Right Finger] Respiratory Rate 18 20 23 Respiratory Effort / Characteristics Respiratory Depth Respiratory Pattern Blood Pressure 143/74 H Blood Pressure [Right Arm] Blood Pressure Mean 97 Blood Pressure Mean [Right Arm] Blood Pressure Position Blood Pressure Position [Right Arm] Pulse Oximetry 96 96 97 Oxygen Delivery Method 04/03/19 18:10 04/03/19 18:20 04/03/19 19:45 Temperature Temperature Source Sepsis Recent Fever Within 48 Hours Sepsis New/Unexplained Change in Mental Status Sepsis Action Taken by Nursing Pulse Rate 68 85 Pulse Rate [Right Finger] 71 Pulse Rate from SpO2 Sensor 68 73 Pulse Rhythm [Right Finger] Regular Pulse Strength [Right Finger] Normal Respiratory Rate 19 22 16 Respiratory Effort / Characteristics Non-Labored Respiratory Depth Normal Respiratory Pattern Regular Blood Pressure Blood Pressure [Right Arm] 99/78 L Blood Pressure Mean Blood Pressure Mean [Right Arm] 85 Blood Pressure Position Blood Pressure Position [Right Arm] Lying Pulse Oximetry 97 94 96 Oxygen Delivery Method Room Air General: Non-ill appearing older male in no acute distress. Hard of hearing. HEENT: Normal cephalic atraumatic. Pupils are equal round and reactive to light. Extraocular movements are intact. Oropharynx is pink with moist mucous membranes. No swelling of the mouth lips or tongue. Neck: Supple with a midline trachea. No meningeal signs or stiffness, no JVD or bruits. No Stridor. Chest: Clear to auscultation bilaterally. No wheezes or rhonchi. No increased work of breathing. Heart: regular rate and rhythm. Abdomen: Soft nontender, nondistended without rebound guarding or rigidity. Extremities: No cyanosis clubbing or edema. No calf tenderness or asymmetry Spine/Back. Non tender to palpation. No CVA tenderness Skin: Good turgor without rashes. Neurologic exam: Cranial nerves two through 12 are intact. Motor and sensation are intact and symmetrical throughout. Course 1703: The patient was evaluated in room B2, and a complete history and physical examination were performed. 1838: I reevaluated the patient and discussed her test results. The patient is resting comfortably. 2134: I reviewed the patient's [facility] He will evaluate the patient for further management. Reevaluation(s) Reevaluation #1: Dr. Bowen Chow. Time: 21:35 Administered Medications Aspirin (Ecotrin Ectab) 81 mg PO HS KERMIT Stop: 05/03/19 21:47 Last Admin: 04/03/19 22:52 Dose: 81 mg Documented by: [id number] Sodium Chloride (Nss 1000ml) 1,000 mls @ 50 mls/hr IV .Q20H KERMIT Stop: 04/04/19 18:00 Last Admin: 04/03/19 22:56 Dose: 50 mls/hr Documented by: [id number] Simvastatin (Zocor) 10 mg PO PM KERMIT Stop: 05/03/19 21:47 Last Admin: 04/03/19 22:53 Dose: 10 mg Documented by: [id number] Sotalol HCl (Betapace) 40 mg PO BID KERMIT Stop: 05/03/19 21:47 Last Admin: 04/03/19 22:53 Dose: 40 mg Documented by: [id number] Discontinued Medications Sodium Chloride (Nss 1000ml) 250 mls @ 999 mls/hr IV .Q16M ONE Stop: 04/03/19 17:29 Last Infusion: 04/03/19 19:17 Dose: 0 mls/hr Documented by: [id number] Admin: 04/03/19 17:51 Dose: 999 mls/hr Documented by: [id number] Medical Decision Making Differential Diagnosis Differentials include anemia, CHF, thyroid disease, electrolyte abnormalities, and metabolic derangement. Medical Records Attestation: I reviewed the patient's medical records. Home Medications Current Medication List: was personally reviewed by me Laboratory Data Attestation: I reviewed the patient's lab results. Result diagrams: 04/03/19 17:20 04/03/19 17:20 Lab Results 04/03/19 04/03/19 04/03/19 Range/Units 17:20 17:20 17:20 WBC 13.24 H (4.8-10.8) K/uL RBC 4.30 (4.2-5.4) M/uL Hgb 12.1 (12.0-16.0) g/dL Hct 35.7 L (37-47) % MCV 83.0 (80-100) fL MCH 28.1 (25-34) pg MCHC 33.9 (32-36) g/dL RDW Std Deviation 39.7 (36.4-46.3) fL RDW Coeff of Cecilia 13.1 (11.5-14.5) % Plt Count 301 (130-400) K/uL MPV 10.1 (7.4-10.4) fL Immature Gran % (Auto) 0.5 % Neut % (Auto) 63.8 % Lymph % (Auto) 17.6 % [place] % (Auto) 13.0 % Eos % (Auto) 4.6 % Baso % (Auto) 0.5 % Immature Gran # (Auto) 0.07 H (0.00-0.02) K/uL Neut # (Auto) 8.44 H (1.4-6.5) K/uL Lymph # (Auto) 2.33 (1.2-3.4) K/uL [place] # (Auto) 1.72 H (0.11-0.59) K/uL Eos # (Auto) 0.61 H (0-0.5) K/uL Baso # (Auto) 0.07 (0-0.2) K/uL Sodium 139 (136-145) mmol/L Potassium 3.9 (3.5-5.1) mmol/L Chloride 103 (98-107) mmol/L Carbon Dioxide 26 (21-32) mmol/L Anion Gap 9.0 (3-11) BUN 31 H (7-18) mg/dl Creatinine 1.61 H (0.6-1.2) mg/dl Est Cr Clr Drug Dosing 22.6 ml/min Est GFR ( Amer) 32.8 Est GFR (Non-Af Amer) 28.3 BUN/Creatinine Ratio 19.4 (10-20) Glucose 160 H (70-99) mg/dl Lactate (0.4-2.0) mmol/L Calcium 9.6 (8.5-10.1) mg/dl Total Bilirubin 0.8 (0.2-1) mg/dl AST 41 H (15-37) U/L ALT 59 (12-78) U/L Alkaline Phosphatase 114 (45-117) U/L Troponin I (0-0.045) ng/ml NT-Pro-B Natriuret Pep (0-1800) pg/ml Total Protein 7.8 (6.4-8.2) gm/dl Albumin 2.8 L (3.4-5.0) gm/dl Globulin 5.0 H (2.5-4.0) gm/dl Albumin/Globulin Ratio 0.6 L (0.9-2) TSH 1.130 (0.300-4.500) uIu/ml Blood Type O Positive Antibody Screen NEGATIVE 04/03/19 04/03/19 04/03/19 Range/Units 17:20 17:20 17:23 WBC (4.8-10.8) K/uL RBC (4.2-5.4) M/uL Hgb (12.0-16.0) g/dL Hct (37-47) % MCV (80-100) fL MCH (25-34) pg MCHC (32-36) g/dL RDW Std Deviation (36.4-46.3) fL RDW Coeff of Cecilia (11.5-14.5) % Plt Count (130-400) K/uL MPV (7.4-10.4) fL Immature Gran % (Auto) % Neut % (Auto) % Lymph % (Auto) % [place] % (Auto) % Eos % (Auto) % Baso % (Auto) % Immature Gran # (Auto) (0.00-0.02) K/uL Neut # (Auto) (1.4-6.5) K/uL Lymph # (Auto) (1.2-3.4) K/uL [place] # (Auto) (0.11-0.59) K/uL Eos # (Auto) (0-0.5) K/uL Baso # (Auto) (0-0.2) K/uL Sodium (136-145) mmol/L Potassium (3.5-5.1) mmol/L Chloride (98-107) mmol/L Carbon Dioxide (21-32) mmol/L Anion Gap (3-11) BUN (7-18) mg/dl Creatinine (0.6-1.2) mg/dl Est Cr Clr Drug Dosing ml/min Est GFR ( Amer) Est GFR (Non-Af Amer) BUN/Creatinine Ratio (10-20) Glucose (70-99) mg/dl Lactate 1.4 (0.4-2.0) mmol/L Calcium (8.5-10.1) mg/dl Total Bilirubin (0.2-1) mg/dl AST (15-37) U/L ALT (12-78) U/L Alkaline Phosphatase (45-117) U/L Troponin I < 0.015 (0-0.045) ng/ml NT-Pro-B Natriuret Pep 1138 (0-1800) pg/ml Total Protein (6.4-8.2) gm/dl Albumin (3.4-5.0) gm/dl Globulin (2.5-4.0) gm/dl Albumin/Globulin Ratio (0.9-2) TSH (0.300-4.500) uIu/ml Blood Type Antibody Screen Imaging Data Radiologist's Impression: Radiology results as stated below per my review and the radiologist's interpretation: CT SCAN OF THE BRAIN WITHOUT IV CONTRAST CLINICAL HISTORY: Generalized weakness. COMPARISON STUDY: CT of the brain dated 02/15/2007. TECHNIQUE: Unenhanced axial CT scan of the brain is performed from the vertex to the skull base. A dose lowering technique was utilized adhering to the principles of ALARA. 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 Wallerian degeneration is noted in the right aspect of the rivera. There are age-related involutional changes noting mild subcortical and periventricular microangiopathic change. There is no hemorrhage, mass effect, or evidence of acute territorial ischemia by CT criteria. Posadas- white matter differentiation is preserved. No extra-axial fluid collection is seen. Mineralization is noted in the basal ganglia. Ventricles, sulci, cisterns: Prominent secondary to involutional change. Intracranial vasculature: There is atherosclerotic calcification of the cavernous carotid and vertebral arteries. Calvarium: Unremarkable. Sinuses and mastoids: The visualized paranasal sinuses are clear. The mastoid air cells are well pneumatized. Orbits: The bony orbits are grossly intact. IMPRESSION: Senescent change and remote infarct as above with no hemorrhage, mass effect, or evidence of acute territorial ischemia by CT criteria. Electronically signed by: Mac Johnson M.D. 04/03/2019 6:44 PM SINGLE VIEW CHEST CLINICAL HISTORY: Generalized weakness. FINDINGS: 2 AP, portable, upright chest radiographs are compared to study dated 02/04/2016 and correlated with chest CT dated 02/01/2017. The examination is degraded by portable technique and patient rotation. The heart is top normal for projection and there is atherosclerotic calcification of the thoracic aorta. There is bibasilar atelectasis. No airspace consolidation or large pleural effusion is identified. There are numerous (at least 5) pulmonary nodules measure up to 12 mm. These are new from prior examinations. No pneumothorax is seen. The skeletal structures are osteopenic. The bony thorax is grossly intact. IMPRESSION: 1. There is no acute cardiopulmonary abnormality. 2. There are numerous (at least 5) round pulmonary nodules which are new from studies dated 2016. This is highly concerning for metastatic disease. Electronically signed by: Mac Johnson M.D. 04/03/2019 5:[address] SCAN OF THE CHEST, ABDOMEN, AND PELVIS WITHOUT IV CONTRAST; CT SCAN OF THE LUMBAR SPINE WITHOUT IV CONTRAST CLINICAL HISTORY: Pulmonary nodules seen by chest x-ray. Back pain. Lower extremity weakness. COMPARISON STUDY: Chest x-ray dated 04/03/2019. Chest CT dated 02/01/2017. Abdominal CT dated 02/17/2007. TECHNIQUE: CT scan of the chest, abdomen, and pelvis was performed from the thoracic inlet to the proximal femora. Additionally, CT scan of the lumbar spine is performed from the lower thoracic spine to sacrum. Images for all of the examination are reviewed in the axial, sagittal, and coronal planes. IV contrast was number administered for this examination as per the referring clinician. Note that the examination was performed in significantly suboptimal fashion without IV contrast. A dose lowering technique was utilized adhering to the principles of ALARA. CT DOSE: 1752.57 mGy.cm FINDINGS: CHEST: Thyroid: Imaged portions of the thyroid gland are normal in size and atten uation. A 12 mm low-attenuation nodule is seen in the right lobe. Thoracic aorta: There is atherosclerotic calcification of the thoracic aorta. There is mild aneurysmal dilatation of the ascending thoracic aorta which measures up to 4.1 cm. The remainder of the thoracic aorta is normal in caliber, and the arch demonstrates standard 3-vessel anatomy. Heart: The heart is mildly enlarged and without pericardial effusion. The coronary arteries and mitral annulus are densely calcified. The pulmonary trunk is dilated measuring up to 3.9 cm. This suggests pulmonary artery hypertension. Lungs and pleural spaces: There is no airspace consolidation or pleural effusion. Scarring/atelectasis is noted at both lung bases. The trachea and central airways are clear. There are numerous (greater than 30) pulmonary nodules scattered throughout both lungs. The largest is in the right lower lobe seen on image #152 and measures 1.5 cm. These are new from the 2017 examination and typical appearance for multifocal pulmonary metastatic disease. Mediastinum: There are scattered subcentimeter mediastinal lymph nodes. These are not pathologically enlarged by size criteria. Cat: Not well assessed without IV contrast. Axillae: There is no axillary lymphadenopathy. Bony thorax: The skeletal structures are osteopenic. Degenerative change and kyphoscoliosis are noted throughout the thoracic spine. No lytic or blastic lesions are identified. ABDOMEN AND PELVIS: Liver: The unenhanced liver is normal in size, contour, and attenuation. There is mild central intrahepatic or ductal dilatation. Gallbladder: Surgically absent noting clips in the gallbladder fossa. Spleen: Normal in size and attenuation. Pancreas: The unenhanced pancreas is atrophic and grossly unremarkable. Adrenal glands: Unremarkable. Kidneys: The unenhanced kidneys are atrophic. There is a large infiltrative mass involving the mid to upper pole of the right kidney. This is not well delineated without IV contrast but likely measures at least 6 cm. There is expansion of the right renal pelvis, and the mass lesion likely invades the collecting system. There is mild stranding around the right kidney. There are at least 2 right renal calculi which measure up to 6 mm. No left renal calculi are identified. An extrarenal pelvis is noted on the left. No left-sided hydronephrosis is seen, and there is no evidence of contour deforming mass lesion in the left kidney. Abdominal vasculature: There is advanced atherosclerotic calcification and mild ectasia of the abdominal aorta. Bowel: There is no bowel obstruction. The appendix is well-visualized and normal. There is a small duodenal diverticulum. Peritoneum: There is no intraperitoneal free air or abdominal ascites. Lymphadenopathy: There are mildly enlarged retroperitoneal lymph nodes. An enlarged retrocaval lymph node on image #140 measures 1.3 cm in short axis. Pelvic viscera: There is gas within the bladder lumen, likely related to recent instrumentation. The bladder is otherwise normal in appearance. A wire or intrauterine device is present within the uterus. The endometrium appears thickened for age, measuring up to 15 mm. The ovaries appear enlarged for age, measuring up to 3.4 cm. Skeletal structures: The skeletal structures are osteopenic. Sclerotic change is noted in the sacroiliac joints. Arthritic change is also seen in the hips. No ly tic or blastic lesions are seen. See below for discussion of the lumbar spine. LUMBAR SPINE: Vertebral body height is maintained throughout the lumbar spine. There is minimal anterolisthesis at L4-L5. Alignment is otherwise preserved. Mild lumbar levocurvature is centered at L4. The transverse and spinous processes are intact. There is no evidence of spondylolysis. There is mild multilevel disc space narrowing. There is a large posterior disc bulges seen at L4-L5. There is likely high-grade central canal stenosis at this level. Smaller disc bulges are seen at L3-L4 and L5-S1. Only mild facet arthropathy is identified. The paraspinous soft tissues are within normal limits. IMPRESSION: 1. Suboptimal examination without oral and IV contrast. 2. There is a large infiltrative mass lesion identified involving the upper pole and interpolar region of the right kidney. This likely invades the right renal collecting system, and this should be considered renal cell carcinoma until otherwise. 3. 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 4. Mildly enlarged retroperitoneal lymph nodes likely represent metastatic involvement. 5. There is no airspace consolidation or pleural effusion. 6. Mild cardiac enlargement and mild aneurysmal dilatation of the ascending thoracic aorta. 7. A wire or intrauterine device is noted within the uterus. 8. The endometrium is abnormally thickened for age, measuring up to 15 mm. This is not well evaluated by CT. Nonemergent gynecology follow-up is recommended. 9. The ovaries appear enlarged for age. 10. No acute bony abnormality is seen involving the lumbar spine. There is no evidence of osseous metastatic disease. 11. There is likely high-grade central canal stenosis at L4-L5 secondary to a posterior disc bulge and hypertrophy of the ligamentum flavum. 12. There is an air-fluid level within the bladder lumen, likely related to recent instrumentation. Correlation with clinical findings and urinalysis will be required. 13. Nonobstructing right renal calculi. 14. Additional findings as above. Electronically signed by: Mac Johnson M.D. 04/03/2019 7:[address] SCAN OF THE CHEST, ABDOMEN, AND PELVIS WITHOUT IV CONTRAST; CT SCAN OF THE LUMBAR SPINE WITHOUT IV CONTRAST CLINICAL HISTORY: Pulmonary nodules seen by chest x-ray. Back pain. Lower extremity weakness. COMPARISON STUDY: Chest x-ray dated 04/03/2019. Chest CT dated 02/01/2017. Abdominal CT dated 02/17/2007. TECHNIQUE: CT scan of the chest, abdomen, and pelvis was performed from the thoracic inlet to the proximal femora. Additionally, CT scan of the lumbar spine is performed from the lower thoracic spine to sacrum. Images for all of the examination are reviewed in the axial, sagittal, and coronal planes. IV contrast was number administered for this examination as per the referring clinician. Note that the examination was performed in significantly suboptimal fashion without IV contrast. A dose lowering technique was utilized adhering to the principles of ALARA. CT DOSE: 1752.57 mGy.cm FINDINGS: CHEST: Thyroid: Imaged portions of the thyroid gland are normal in size and attenuation. A 12 mm low-attenuation nodule is seen in the right lobe. Thoracic aorta: There is atherosclerotic calcification of the thoracic aorta. There is mild aneurysmal dilatation of the ascending thoracic aorta which measures up to 4.1 cm. The remainder of the thoracic aorta is normal in caliber, and the arch demonstrates standard 3-vessel anatomy. Heart: The heart is mildly enlarged and without pericardial effusion. The coronary arteries and mitral annulus are densely calcified. The pulmonary trunk is dilated measuring up to 3.9 cm. This suggests pulmonary artery hypertension. Lungs and pleural spaces: There is no airspace consolidation or pleural effusion. Scarring/atelectasis is noted at both lung bases. The trachea and central airways are clear. There are numerous (greater than 30) pulmonary nodu les scattered throughout both lungs. The largest is in the right lower lobe seen on image #152 and measures 1.5 cm. These are new from the 2017 examination and typical appearance for multifocal pulmonary metastatic disease. Mediastinum: There are scattered subcentimeter mediastinal lymph nodes. These are not pathologically enlarged by size criteria. Cat: Not well assessed without IV contrast. Axillae: There is no axillary lymphadenopathy. Bony thorax: The skeletal structures are osteopenic. Degenerative change and kyphoscoliosis are noted throughout the thoracic spine. No lytic or blastic lesions are identified. ABDOMEN AND PELVIS: Liver: The unenhanced liver is normal in size, contour, and attenuation. There is mild central intrahepatic or ductal dilatation. Gallbladder: Surgically absent noting clips in the gallbladder fossa. Spleen: Normal in size and attenuation. Pancreas: The unenhanced pancreas is atrophic and grossly unremarkable. Adrenal glands: Unremarkable. Kidneys: The unenhanced kidneys are atrophic. There is a large infiltrative mass involving the mid to upper pole of the right kidney. This is not well delineated without IV contrast but likely measures at least 6 cm. There is expansion of the right renal pelvis, and the mass lesion likely invades the collecting system. There is mild stranding around the right kidney. There are at least 2 right renal calculi which measure up to 6 mm. No left renal calculi are identified. An extrarenal pelvis is noted on the left. No left-sided hydronephrosis is seen, and there is no evidence of contour deforming mass lesion in the left kidney. Abdominal vasculature: There is advanced atherosclerotic calcification and mild ectasia of the abdominal aorta. Bowel: There is no bowel obstruction. The appendix is well-visualized and normal. There is a small duodenal diverticulum. Peritoneum: There is no intraperitoneal free air or abdominal ascites. Lymphadenopathy: There are mildly enlarged retroperitoneal lymph nodes. An enlarged retrocaval lymph node on image #140 measures 1.3 cm in short axis. Pelvic viscera: There is gas within the bladder lumen, likely related to recent instrumentation. The bladder is otherwise normal in appearance. A wire or intrauterine device is present within the uterus. The endometrium appears thickened for age, measuring up to 15 mm. The ovaries appear enlarged for age, m easuring up to 3.4 cm. Skeletal structures: The skeletal structures are osteopenic. Sclerotic change is noted in the sacroiliac joints. Arthritic change is also seen in the hips. No lytic or blastic lesions are seen. See below for discussion of the lumbar spine. LUMBAR SPINE: Vertebral body height is maintained throughout the lumbar spine. There is minimal anterolisthesis at L4-L5. Alignment is otherwise preserved. Mild lumbar levocurvature is centered at L4. The transverse and spinous process es are intact. There is no evidence of spondylolysis. There is mild multilevel disc space narrowing. There is a large posterior disc bulges seen at L4-L5. There is likely high-grade central canal stenosis at this level. Smaller disc bulges are seen at L3-L4 and L5-S1. Only mild facet arthropathy is identified. The paraspinous soft tissues are within normal limits. IMPRESSION: 1. Suboptimal examination without oral and IV contrast. 2. There is a large infiltrative mass lesion identified involving the upper pole and interpolar region of the right kidney. This likely invades the right renal collecting system, and this should be considered renal cell carcinoma until otherwise. 3. 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 4. Mildly enlarged retroperitoneal lymph nodes likely represent metastatic involvement. 5. There is no airspace consolidation or pleural effusion. 6. Mild cardiac enlargement and mild aneurysmal dilatation of the ascending thoracic aorta. 7. A wire or intrauterine device is noted within the uterus. 8. The endometrium is abnormally thickened for age, measuring up to 15 mm. This is not well evaluated by CT. Nonemergent gynecology follow-up is recommended. 9. The ovaries appear enlarged for age. 10. No acute bony abnormality is seen involving the lumbar spine. There is no evidence of osseous metastatic disease. 11. There is likely high-grade central canal stenosis at L4-L5 secondary to a posterior disc bulge and hypertrophy of the ligamentum flavum. 12. There is an air-fluid level within the bladder lumen, likely related to recent instrumentation. Correlation with clinical findings and urinalysis will be required. 13. Nonobstructing right renal calculi. 14. Additional findings as above. Electronically signed by: Mac Johnson M.D. 04/03/2019 7:[address] SCAN OF THE CHEST, ABDOMEN, AND PELVIS WITHOUT IV CONTRAST; CT SCAN OF THE LUMBAR SPINE WITHOUT IV CONTRAST CLINICAL HISTORY: Pulmonary nodules seen by chest x-ray. Back pain. Lower extremity weakness. COMPARISON STUDY: Chest x-ray dated 04/03/2019. Chest CT dated 02/01/2017. Abdominal CT dated 02/17/2007. TECHNIQUE: CT scan of the chest, abdomen, and pelvis was performed from the thoracic inlet to the proximal femora. Additionally, CT scan of the lumbar spine is performed from the lower thoracic spine to sacrum. Images for all of the examination are reviewed in the axial, sagittal, and coronal planes. IV contrast was number administered for this examination as per the referring clinician. Note that the examination was performed in significantly suboptimal fashion without IV contrast. A dose lowering technique was utilized adhering to the principles of ALARA. CT DOSE: 1752.57 mGy.cm FINDINGS: CHEST: Thyroid: Imaged portions of the thyroid gland are normal in size and attenuation. A 12 mm low-attenuation nodule is seen in the right lobe. Thoracic aorta: There is atherosclerotic calcification of the thoracic aorta. There is mild aneurysmal dilatation of the ascending thoracic aorta which measures up to 4.1 cm. The remainder of the thoracic aorta is normal in caliber, and the arch demonstrates standard 3-vessel anatomy. Heart: The heart is mildly enlarged and without pericardial effusion. The co ronary arteries and mitral annulus are densely calcified. The pulmonary trunk is dilated measuring up to 3.9 cm. This suggests pulmonary artery hypertension. Lungs and pleural spaces: There is no airspace consolidation or pleural effusion. Scarring/atelectasis is noted at both lung bases. The trachea and central airways are clear. There are numerous (greater than 30) pulmonary nodules scattered throughout both lungs. The largest is in the right lower lobe seen on image #152 and measures 1.5 cm. These are new from the 2017 examination and typical appearance for multifocal pulmonary metastatic disease. Mediastinum: There are scattered subcentimeter mediastinal lymph nodes. These are not pathologically enlarged by size criteria. Cat: Not well assessed without IV contrast. Axillae: There is no axillary lymphadenopathy. Bony thorax: The skeletal structures are osteopenic. Degenerative change and kyphoscoliosis are noted throughout the thoracic spine. No lytic or blastic lesions are identified. ABDOMEN AND PELVIS: Liver: The unenhanced liver is normal in size, contour, and attenuation. There is mild central intrahepatic or ductal dilatation. Gallbladder: Surgically absent noting clips in the gallbladder fossa. Spleen: Normal in size and attenuation. Pancreas: The unenhanced pancreas is atrophic and grossly unremarkable. Adrenal glands: Unremarkable. Kidneys: The unenhanced kidneys are atrophic. There is a large infiltrative mass involving the mid to upper pole of the right kidney. This is not well delineated without IV contrast but likely measures at least 6 cm. There is expansion of the right renal pelvis, and the mass lesion likely invades the collecting system. There is mild stranding around the right kidney. There are at least 2 right renal calculi which measure up to 6 mm. No left renal calculi are identified. An extrarenal pelvis is noted on the left. No left-sided hydronephrosis is seen, and there is no evidence of contour deforming mass lesion in the left kidney. Abdominal vasculature: There is advanced atherosclerotic calcification and mild ectasia of the abdominal aorta. Bowel: There is no bowel obstruction. The appendix is well-visualized and normal. There is a small duodenal diverticulum. Peritoneum: There is no intraperitoneal free air or abdominal ascites. Lymphadenopathy: There are mildly enlarged retroperitoneal lymph nodes. An enlarged retrocaval lymph node on image #140 measures 1.3 cm in short axis. Pelvic viscera: There is gas within the bladder lumen, likely related to recent instrumentation. The bladder is otherwise normal in appearance. A wire or intrauterine device is present within the uterus. The endometrium appears thickened for age, measuring up to 15 mm. The ovaries appear enlarged for age, measuring up to 3.4 cm. Skeletal structures: The skeletal structures are osteopenic. Sclerotic change is noted in the sacroiliac joints. Arthritic change is also seen in the hips. No lytic or blastic lesions are seen. See below for discussion of the lumbar spine. LUMBAR SPINE: Vertebral body height is maintained throughout the lumbar spine. There is minimal anterolisthesis at L4-L5. Alignment is otherwise preserved. Mild lumbar levocurvature is centered at L4. The transverse and spinous processes are intact. There is no evidence of spondylolysis. There is mild multilevel disc space narrowing. There is a large posterior disc bulges seen at L4-L5. There is likely high-grade central canal stenosis at this level. Smaller disc bulges are seen at L3-L4 and L5-S1. Only mild facet arthropathy is identified. The paraspinous soft tissues are within normal limits. IMPRESSION: 1. Suboptimal examination without oral and IV contrast. 2. There is a large infiltrative mass lesion identified involving the upper pole and interpolar region of the right kidney. This likely invades the right renal collecting system, and this should be considered renal cell carcinoma until otherwise. 3. 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 4. Mildly enlarged retroperitoneal lymph nodes likely represent metastatic involvement. 5. There is no airspace consolidation or pleural effusion. 6. Mild cardiac enlargement and mild aneurysmal dilatation of the ascending thoracic aorta. 7. A wire or intrauterine device is noted within the uterus. 8. The endometrium is abnormally thickened for age, measuring up to 15 mm. This is not well evaluated by CT. Nonemergent gynecology follow-up is recommended. 9. The ovaries appear enlarged for age. 10. No acute bony abnormality is seen involving the lumbar spine. There is no evidence of osseous metastatic disease. 11. There is likely high-grade central canal stenosis at L4-L5 secondary to a posterior disc bulge and hypertrophy of the ligamentum flavum. 12. There is an air-fluid level within the bladder lumen, likely related to recent instrumentation. Correlation with clinical findings and urinalysis will be required. 13. Nonobstructing right renal calculi. 14. Additional findings as above. Electronically signed by: Mac Johnson M.D. 04/03/2019 7:11 PM ECG Data Attestation: I personally reviewed and interpreted this ECG as follows: Indication: weakness Rate (beats per minute): 67 Rhythm: normal sinus Findings: no acute ischemic change and no ectopy Comparison ECG Date: from (01/31/17) Change: the following changes noted (rate increased) Blood Pressure Blood Pressure Findings: Elevated blood pressure Blood Pressure Disposition: Referred to patients primary care provider MDM Narrative This patient comes in as described above. She is brought in by her family after having functional decline and weakness. This been going on for about 2 weeks. They said this happened after she stopped her iron pill. She has had no fever. She typically lives independently is very spry. She has a known renal tumor that they have opted not to operate on due to her age and other comorbidities. She has a nonfocal neurologic exam. she has nothing clinically to suggest cauda equina syndrome. She has chronic back pain but may be getting worse. IV access was established and she was given an IV fluid bolus. CAT scan was obtained and her head. I also ordered a chest and abdomen and pelvis. This was done without contrast due to her renal insufficiency. She has no white count or fever to suggest infection. she has no significant for metabolic abnormalities. The chest CT was worrisome for possible metastatic disease. She also has lymph nodes in the retroperitoneum which are concerning for possible metastatic disease as well. She has a renal tumor which is likely renal cell carcinoma on the right. She also has significant disc disease with spinal stenosis. She may need an MRI or further imaging. Also there was a metallic object seen within the uterus. Family is not sure what this is. I did consult the [facility] hospitalist I do think she needs to be admitted for further treatment and evaluation. Impression & Plan Weakness, Lumbar disc disease, Renal mass, Metastatic cancer Discharge Plan Visit Data *Final* Discharge Date/Time: 04/03/19 21:15 Chief Complaint: Leg Weakness, Bilateral Stated Complaint: PROFOUND WEAKNESS, LOW IRON INABLE TO WALK ED Provider: Justin Arriola Discharge Problem: Weakness, Lumbar disc disease, Renal mass, Metastatic cancer Patient Disposition: Admitted As Inpatient Discharge Instructions Interventions: ED Discharge Assessment Last Done: 04/03/19 21:15 The deangeloibe's documentation has been prepared under my direction and personally reviewed by me in its entirety. I confirm that the note above accurately reflects all work, treatment, procedures, and medical decision making performed by me.
[2019-04-03] MEDS ORDERED: ACETAMINOPHEN 325 MG TAB PO PRN (21:48)
[2019-04-03] MEDS ORDERED: ONDANSETRON INJ 2 MG/ML 2 ML VIAL IV PRN (21:48)
[2019-04-03] MEDS ORDERED: NITROGLYCERIN SL 0.4 MG/TAB TAB SL PRN (21:48)
[2019-04-03] MEDS ORDERED: POLYETHYLENE (MIRALAX) 17 GM PACK PO PRN (21:48)
[2019-04-03] MEDS ORDERED: ASPIRIN 81 MG ECTAB PO SCH (21:48)
[2019-04-03] MEDS: SOTALOL HCL 80 MG TAB PO SCH (22:53)
[2019-04-03] MEDS: SIMVASTATIN 10 MG TAB PO SCH (22:53)
[2019-04-03] MEDS: SODIUM CHLORIDE 0.9% 1000ML 1,000 ML IV SCH (22:56)
--- NOTE | 2019-04-04 03:12 | History and Physical Report ---
DATE OF ADMISSION: 04/03/2019 CHIEF COMPLAINT: Weakness. HISTORY OF PRESENT ILLNESS: This is an 88-year-old female with past medical history significant for type 2 diabetes, hyperlipidemia, paroxysmal atrial fibrillation, history of CVA, hypertension, AV malformation of the colon, venous insufficiency, chronic kidney disease stage IV. Baseline creatinine around 1.4 to 1.6, history of right renal mass, hearing loss, glaucoma, presents with mostly the generalized weakness and also weakness in lower extremities. She lives alone. Daughter brought her to the hospital as patient since last 2 weeks is getting progressively weak. Walking from each room to other room, she has to stop. We are not sure there is weakness in the leg. Patient thinks most of the weakness is in the legs. She has on and off some back pain. Denies any headaches or dizziness. She has used eyedrops for dry eyes. Hard of hearing. No difficulty swallowing. Appetite is not that great. Denies any chest pain or abdominal pain, no nausea. She says she has on and off hematuria. She is having some ongoing diarrhea. Currently resting comfortably and hemodynamically stable. The patient has history of right renal mass. She also follows with [facility]. There was a recommendation for ureteroscopy, biopsy and if positive right nephroureterectomy in September of 2018, but patient was comfortable with observation. She also had second opinion at [facility] and was on observation. Her renal mass was 3.6 cm in November of 2017. Today's CAT scan showed [address] chest shows multiple pulmonary nodules suspect for metastatic disease. The patient also has some dry cough but denies any shortness of breath. ALLERGIES: No known drug allergies. PAST MEDICAL HISTORY: As mentioned above. PAST SURGICAL HISTORY: Colonoscopy with biopsy, EGD with biopsy, right breast cyst drainage, cataract surgery, bilateral, open cholecystectomy. MEDICATIONS: The patient is on Zocor 10 mg p.o. at bedtime, sotalol 40 mg p.o. b.i.d., aspirin 81 mg p.o. daily, Nitrostat 0.4 mg sublingual p.r.n., calcium plus vitamin D 1 tablet daily, multivitamins 1 tablet daily. FAMILY HISTORY: Significant for sister has breast cancer, history of SC at age of 65. Mother had diabetes, heart disorder, hypertension. Father had black lung. SOCIAL HISTORY: , lives alone. No smoking, no alcohol, no drug use. REVIEW OF SYMPTOMS: As per HPI. Rest of review of systems negative. PHYSICAL EXAMINATION: GENERAL: The patient is old and frail, not in acute distress. VITAL SIGNS: Temperature 37.2, pulse 71, respiratory rate 16, blood pressure 99/78, oxygen 96% on room air. HEENT: No pallor, no icterus. Pupils equal, round, reactive to light. NECK: No JVD, no neck mass, no carotid bruits. CARDIOVASCULAR: S1, S2 heard, regular rate and rhythm, no murmur, no gallop. RESPIRATORY SYSTEM: Normal AP diameter. No accessory muscle use. No wheezing, no crackles. ABDOMEN: Soft, bowel sounds present. Nontender. No distention. CENTRAL NERVOUS SYSTEM: Cranial nerves II-XII grossly intact, nonfocal. EXTREMITIES: Chronic lower extremity skin changes seen. No erythema seen. LABORATORY DATA: WBC 13.2, hemoglobin 12.1, hematocrit 35.7, platelets 301. Sodium 139, potassium 3.9, chloride 103, bicarbonate 26, BUN 31, creatinine 1.6, serum glucose 160. Lactate 1.4, calcium 9.6, total bilirubin 0.8, AST 41, ALT 59, alkaline phosphatase is 114. Troponin I less than 0.015. BNP 1138. TSH 1.1. Chest x-ray, there is no acute cardiopulmonary abnormalities. There are numerous pulmonary nodules which are new from studies dated 2017, highly concerning for metastatic disease. CT of the head, no acute findings. CT of chest and the abdomen and pelvis, large infiltrate or mass lesion identified in the upper pole and interpolar region of the right kidney. This likely invades the right renal collecting system and this should be considered renal cell carcinoma until otherwise, it is about 6 cm, mildly enlarged retroperitoneal lymph nodes, likely represent metastatic involvement. Multiple pulmonary metastatic disease, a wire, intrauterine device is noted within the uterus, endometrium is abnormally thickened for the age, measuring up to 15 mm, this is not well-developed by CT, nonemergent gynecological followup visit is recommended. The ovaries appear enlarged for age. Likely high grade central canal stenosis L4-L5 secondary to posterior disc bulge and hypertrophy of the ligamentum flavum. ASSESSMENT AND PLAN: 1. An 88-year-old female who presents with weakness. The patient complains more in the lower extremity, weakness could be secondary to her metastatic renal cancer. Also there is high grade central canal stenosis and posterior disc bulge at L4-L5. We will consult orthopedics for further opinion. PT and OT when more stable. 2. Metastatic cancer. The renal mass increased from 3.6 to 6 cm from 11/2017 to CAT scan today. Patient decided for observation, as per urology notes . Has multiple lung nodules concerning for metastatic disease. We will consult urology for further opinion and recommendations. Daughters are aware of the condition. 3. Endometrium thickened. Enlarged ovaries. Question of IUD. Family denies any knowledge of procedures to uterus. Will consult [employer]. 4. Chronic kidney disease, stage IV with baseline creatinine around 1.4 to 1.6. Today's creatinine is1.6. We will follow the labs. 5. History of atrial fibrillation, not on anticoagulation secondary to history of AV malformation of the colon. On sotalol and aspirin. Rates are under control. 6. Hyperlipidemia, on statin. 7. Diabetes, not on any medications. We will place her on diabetic diet and follow HbA1c levels. 8. Deep venous thrombosis prophylaxis, sequential compression devices for now. 9. Disposition: Close monitoring in the med/surg tele. 10. Code status, level 1 full code. MTDD
[2019-04-04 05:34] LABS: Basophils # (auto) 0.08 K/uL (0-0.2); Basophils % (auto) 0.7 %; Eosinophils # (auto) 0.71 K/uL (0-0.5); Hematocrit (blood only) 32.3 % (37-47); Hemoglobin 10.7 g/dL (12.0-16.0); Immature Granulocytes # (auto) 0.04 K/uL (0.00-0.02); Immature Granulocytes % (auto) 0.3 %; Lymphocytes # (auto) 2.11 K/uL (1.2-3.4); Mean Corpuscular Hgb Conc 33.1 g/dL (32-36); Mean Corpuscular Volume 82.8 fL (80-100); Monocytes # (auto) 1.55 K/uL (0.11-0.59); Monocytes % (auto) 13.2 %; Neutrophils # (auto) 7.26 K/uL (1.4-6.5); Neutrophils % (auto) 61.8 %; Platelet Count 270 K/uL (130-400); RDW Coefficient of Variation 13.1 % (11.5-14.5); RDW Standard Deviation 39.5 fL (36.4-46.3); White Blood Count 11.75 K/uL (4.8-10.8)
[2019-04-04 05:58] LABS: BUN Creatinine Ratio 19.8 (10-20); Calcium 8.8 mg/dl (8.5-10.1); Creatinine Clr Calc Pharmacy 25.1 ml/min; Est GFR (African American) 37.2; Est GFR (Non-African American) 32.1; Potassium 4.1 mmol/L (3.5-5.1)
[2019-04-04 06:59] LABS: Estimated Average Glucose 134 mg/dl; Hemoglobin A1C 6.3 % (4.5-5.6)
[2019-04-04] MEDS: SOTALOL HCL 80 MG TAB PO SCH ×2 (07:53→20:29)
[2019-04-04] MEDS: CALCIUM 600MG + VIT D 400 IU TAB PO SCH (07:53)
--- NOTE | 2019-04-04 08:43 | Consultation ---
Date of Consultation April 04, 2019 Assessment & Plan (1) Weakness: At this point in time the CT scan of her lumbar spine provides us with limited data. Will pursue MRI of the lumbar spine without contrast for better evaluation as to the degree of her stenosis. Certainly if stenosis of the l umbar spine is severe this may be the cause of her bilateral lower extremity weakness. Dr. Soria is out of town for the weekend. He will evaluate the patient on Saturday and make further recommendations. Supervising Physician Co-Signing Physician Notes Dr. Arley Soria History of Present Illness Requesting Physician: This is a pleasant 88-year-old female that we are asked to see in consultation regards to bilateral lower extremity weakness. Patient is a bit of a difficult historian due to her hearing impairment. She reports she has noticed for the past several weeks gradual bilateral lower extremity weakness. She reports she lives alone and normally ablates independently. She has not required any assisting devices. She denies radicular leg pain, paresthesia, numbness. Denies back pain. Denies bowel or bladder changes. She does state overall she notes generalized fatigue over the past several weeks as well. Attending Physician: Liv Dias MD Allergies Allergy/AdvReac Type Severity Reaction Status Date / Time No Known Allergies Allergy Mild Verified 12/16/17 15:34 Home Medications Home Medications Medication Instructions Recorded Confirmed Type aspirin [Aspir-81] 81 mg PO HS 04/03/19 04/03/19 History calcium carbonate-vitamin D3 1 tab PO DAILY 04/03/19 04/03/19 History [Calcium 600 + D(3)] ferrous sulfate 325 mg PO DAILY 04/03/19 04/03/19 History simvastatin 10 mg PO PM 04/03/19 04/03/19 History sotalol 40 mg PO BID 04/03/19 04/03/19 History Patient History Medical History Kidney disease (Acute) High cholesterol (Chronic) Social History Preferred Language: Syriac Communication Ability: Effective Corporate Administrative Assistant Required: Yes Beliefs That Will Affect Care: Adventism Adventism Beliefs: cathloic Current Living Situation: Alone Other Information That Helps Us Care for You: No Feels Safe at Home: Yes Safety Concerns: Feels Safe At This Time Smoking Status: Never smoker Do You Dip or Chew Tobacco: No Hx Alcohol Use: No Hx Substance Use: No Review of Systems Review of Systems: All systems reviewed & are unremarkable except as noted in HPI & below Physical Exam Physical Exam: Patient is very hard of hearing. Alert and oriented x3. She is able to move from a supine to a seated position with ease. Nontender to palpation of the thoracolumbar spine. Strength is 5/5 bilateral EHL, dorsiflexion, plantarflexion, quadriceps, hamstrings, hip flexors, hip abductor's and hip adductor's. Negative tension signs bilaterally. Constitutional: WD/WN, vitals as above Eyes: normal visual sullivan by confrontation ENMT: Ears: + hearing impairment Neck: normal visual inspection Respiratory: normal respiratory effort Cardiovascular: Rate/Rhythm: regular rate Vessels: dorsalis pedis pulses present Extremities: normal capillary refill Gastrointestinal (Abdomen): Inspection/Auscultation: abdomen normal to inspection Musculoskeletal: no cyanosis or clubbing, extremities motor strength 5/5 Extremities: strength 5/5 throughout Skin: no rashes, warm and dry Neurologic: patellar DTR's 2+ bilat, sensation intact normal touch/pain/proprioception and moves all extremities Psychiatric: Speech: normal rate/rhythm/volume of speech Results & Data Vital Signs (Past 12 Hours) Vital Signs Temp Pulse Pulse Resp BP BP Pulse Ox 04/04/19 07:44 36.8 C 68 16 110/63 98 04/04/19 04:24 36.9 C 60 18 130/68 98 04/03/19 23:03 61 04/03/19 22:05 36.8 C 81 18 124/67 97 04/03/19 21:15 72 16 104/[address] Scan Report Patient: KATLIN TYLERAdmit Date: 04/03/19 MR#: [id number]: [address] Acct ID:[id number]: Date: 1930City Zip: [place] [address] Age: 88Location: ED Sex: F Room/Bed: Att Phy: Diagnosis: PROFOUND WEAKNESS, LOW IRON INABLE TO WALK Sonia Phy: Darek Mitchell MDService Date: 04/03/19 [facility] Phy: Interpreting Phy: Mac Johnson MD Admit Phy: Ordering Phy: Justin Arriola M.D. cc: ~ CT SCAN OF THE CHEST, ABDOMEN, AND PELVIS WITHOUT IV CONTRAST; CT SCAN OF THE LUMBAR SPINE WITHOUT IV CONTRAST CLINICAL HISTORY: Pulmonary nodules seen by chest x-ray. Back pain. Lower extremity weakness. COMPARISON STUDY: Chest x-ray dated 04/03/2019. Chest CT dated 02/01/2017. Abdominal CT dated 02/17/2007. TECHNIQUE: CT scan of the chest, abdomen, and pelvis was performed from the thoracic inlet to the proximal femora. Additionally, CT scan of the lumbar spine is performed from the lower thoracic spine to sacrum. Images for all of the examination are reviewed in the axial, sagittal, and coronal planes. IV contrast was number administered for this examination as per the referring clinician. Note that the examination was performed in significantly suboptimal fashion without IV contrast. A dose lowering technique was utilized adhering to the principles of ALARA. CT DOSE: 1752.57 mGy.cm FINDINGS: CHEST: Thyroid: Imaged portions of the thyroid gland are normal in size and attenuation. A 12 mm low-attenuation nodule is seen in the right lobe. Thoracic aorta: There is atherosclerotic calcification of the thoracic aorta. There is mild aneurysmal dilatation of the ascending thoracic aorta which measures up to 4.1 cm. The remainder of the thoracic aorta is normal in caliber, and the arch demonstrates standard 3-vessel anatomy. Heart: The heart is mildly enlarged and without pericardial effusion. The coronary arteries and mitral annulus are densely calcified. The pulmonary trunk is dilated measuring up to 3.9 cm. This suggests pulmonary artery hypertension. Lungs and pleural spaces: There is no airspace consolidation or pleural effusion. Scarring/atelectasis is noted at both lung bases. The trachea and central airways are clear. There are numerous (greater than 30) pulmonary nodules scattered throughout both lungs. The largest is in the right lower lobe seen on image #152 and measures 1.5 cm. These are new from the 2017 examination and typical appearance for multifocal pulmonary metastatic disease. Mediastinum: There are scattered subcentimeter mediastinal lymph nodes. These are not pathologically enlarged by size criteria. Cat: Not well assessed without IV contrast. Axillae: There is no axillary lymphadenopathy. Bony thorax: The skeletal structures are osteopenic. Degenerative change and kyphoscoliosis are noted throughout the thoracic spine. No lytic or blastic lesions are identified. ABDOMEN AND PELVIS: Liver: The unenhanced liver is normal in size, contour, and attenuation. There is mild central intrahepatic or ductal dilatation. Gallbladder: Surgically absent noting clips in the gallbladder fossa. Spleen: Normal in size and attenuation. Pancreas: The unenhanced pancreas is atrophic and grossly unremarkable. Adrenal glands: Unremarkable. Kidneys: The unenhanced kidneys are atrophic. There is a large infiltrative mass involving the mid to upper pole of the right kidney. This is not well delineated without IV contrast but likely measures at least 6 cm. There is expansion of the right renal pelvis, and the mass lesion likely invades the collecting system. There is mild stranding around the right kidney. There are at least 2 right renal calculi which measure up to 6 mm. No left renal calculi are identified. An extrarenal pelvis is noted on the left. No left-sided hydronephrosis is seen, and there is no evidence of contour deforming mass lesion in the left kidney. Abdominal vasculature: There is advanced atherosclerotic calcification and mild ectasia of the abdominal aorta. Bowel: There is no bowel obstruction. The appendix is well-visualized and normal. There is a small duodenal diverticulum. Peritoneum: There is no intraperitoneal free air or abdominal ascites. Lymphadenopathy: There are mildly enlarged retroperitoneal lymph nodes. An enlarged retrocaval lymph node on image #140 measures 1.3 cm in short axis. Pelvic viscera: There is gas within the bladder lumen, likely related to recent instrumentation. The bladder is otherwise normal in appearance. A wire or intrauterine device is present within the uterus. The endometrium appears thickened for age, measuring up to 15 mm. The ovaries appear enlarged for age, measuring up to 3.4 cm. Skeletal structures: The skeletal structures are osteopenic. Sclerotic change is noted in the sacroiliac joints. Arthritic change is also seen in the hips. No lytic or blastic lesions are seen. See below for discussion of the lumbar spine. LUMBAR SPINE: Vertebral body height is maintained throughout the lumbar spine. There is minimal anterolisthesis at L4-L5. Alignment is otherwise preserved. Mild lumbar levocurvature is centered at L4. The transverse and spinous processes are intact. There is no evidence of spondylolysis. There is mild multilevel disc space narrowing. There is a large posterior disc bulges seen at L4-L5. There is likely high-grade central canal stenosis at this level. Smaller disc bulges are seen at L3-L4 and L5-S1. Only mild facet arthropathy is identified. The paraspinous soft tissues are within normal limits. IMPRESSION: 1. Suboptimal examination without oral and IV contrast. 2. There is a large infiltrative mass lesion identified involving the upper pole and interpolar region of the right kidney. This likely invades the right renal collecting system, and this should be considered renal cell carcinoma until otherwise. 3. 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 4. Mildly enlarged retroperitoneal lymph nodes likely represent metastatic involvement. 5. There is no airspace consolidation or pleural effusion. 6. Mild cardiac enlargement and mild aneurysmal dilatation of the ascending thoracic aorta. 7. A wire or intrauterine device is noted within the uterus. 8. The endometrium is abnormally thickened for age, measuring up to 15 mm. This is not well evaluated by CT. Nonemergent gynecology follow-up is recommended. 9. The ovaries appear enlarged for age. 10. No acute bony abnormality is seen involving the lumbar spine. There is no evidence of osseous metastatic disease. 11. There is likely high-grade central canal stenosis at L4-L5 secondary to a posterior disc bulge and hypertrophy of the ligamentum flavum. 12. There is an air-fluid level within the bladder lumen, likely related to recent instrumentation. Correlation with clinical findings and urinalysis will be required. 13. Nonobstructing right renal calculi. 14. Additional findings as above. Electronically signed by: Mac Johnson M.D. 04/03/2019 7:11 PM Dictated: 04/03/19 1846
[2019-04-04] MEDS ORDERED: LORazepam 0.5 MG TAB PO SCH (10:30)
--- NOTE | 2019-04-04 15:19 | Urology Consultation ---
Date of Consultation April 04, 2019 Assessment & Plan (1) Renal mass: right renal mass Original imaging suggested a central mass which favors a urothelial cancer could also be renal cell carcinoma patient has elected no surgical treatment from the time of diagnosis and her daughters were supportive of this decision. They furthermore had a second opinion at [facility] who supported her decision of an observation pathway. Nothing to offer surigcally now. I am pleasantly surprised she is not anemic. I suggest she be introduced to the hospice service this admission I do not suspect her current metastatic disease is contributing to her lower extremity weakness. 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 Patient prestned with gross hematuria and right renal mass suspicious for large urothelial cancerin 2017. She had a follow up visit in 2018. She was offered diagnostic testing and surgical therapy for this presumed cancer and declined. She and her daughters fully understood if she would experience spread of this cancer some time in the future. She was too fearful of having a nephrectomy at her advanced age. Additionally her experienced sudden only a few days post-op from a nephrectomy for cancer so she has a tremendous fear of this surgery. Thus she declined treatment. She experiences mild hematuria about once per week. Her admission is for lower extremity weakness. Imaging shows an enlarging right renal mass with local perirenal nodes and dozens of very small pulmonary masses suspicious for pulmonary mets. Allergies Allergy/AdvReac Type Severity Reaction Status Date / Time No Known Allergies Allergy Mild Verified 12/16/17 15:34 Home Medications Home Medications Medication Instructions Recorded Confirmed Type aspirin [Aspir-81] 81 mg PO HS 04/03/19 04/03/19 History calcium carbonate-vitamin D3 1 tab PO DAILY 04/03/19 04/03/19 History [Calcium 600 + D(3)] ferrous sulfate 325 mg PO DAILY 04/03/19 04/03/19 History simvastatin 10 mg PO PM 04/03/19 04/03/19 History sotalol 40 mg PO BID 04/03/19 04/03/19 History Patient History Medical History Kidney disease (Acute) High cholesterol (Chronic) Social History Preferred Language: Bengali Communication Ability: Effective Car Customizer Required: Yes Beliefs That Will Affect Care: Jainism Jainism Beliefs: cathloic Current Living Situation: Alone Other Information That Helps Us Care for You: No Feels Safe at Home: Yes Safety Concerns: Feels Safe At This Time Smoking Status: Never smoker Do You Dip or Chew Tobacco: No Hx Alcohol Use: No Hx Substance Use: No Review of Systems Review of Systems: h/o stroke cholesterol DM arthritis Allergy- none Soc- no tobacco, no alcohol, , retired lives alone has daughters local in the area. ROS-+ fatigue, + gait problems, + weakness in legs, no constipation, no rash, no seizure no chest pain. Physical Exam Constitutional: WD/WN, vitals as above + thin hard of hearing resting comfortably in bed Respiratory: normal respiratory effort and able to speak in complete sentences; no cough Gastrointestinal (Abdomen): normal bowel sounds, soft, nontender, no hepatosplenomegaly Skin: no rashes, warm and dry Psychiatric: A+Ox3, euthymic affect Lymphatic: no edema on either aceves and no calf tenderness Results & Data Vital Signs (Past 12 Hours) Vital Signs Temp Pulse Pulse Resp BP Pulse Ox 04/04/19 14:47 61 04/04/19 08:00 84 04/04/19 07:44 36.8 C 68 16 110/63 98 04/04/19 04:24 36.9 C 60 18 130/68 98
[2019-04-04 15:21] LABS: Appearance Urine Turbid (Clear); Bacteria Urine Automated 4+ (Negative); Bilirubin Urine Negative (Negative); Blood Urine 3+ (Negative); Color Urine Orange; Epithelial Cell Urine Auto >30 /lpf (0-5); Glucose Urine UA Negative (Negative); Ketones Urine Negative (Negative); Leukocyte Esterase Urine 3+ (Negative); Nitrite Urine Negative (Negative); Protein Urine 1+ (Negative); Specific Gravity Urine 1.021 (1.000-1.030); Urobilinogen Urine Negative (Negative); WBC Urine Automated >30 /hpf (0-5); pH Urine 5.5 (4.5-7.5)
[2019-04-04 15:32] LABS: RBC Urine Automated >30 /hpf (0-4)
[2019-04-04] MEDS ORDERED: Nursing to Pharmacy Communication ONE (15:43)
--- NOTE | 2019-04-04 16:47 | Obstetrical Progress Note ---
Date of Service April 04, 2019 Subjective I made second attempt to talk to her Daughter is not available She can not hear what I am saying Thank you Results & Data Vital Signs (Past 12 Hours) Vital Signs Temp Pulse Pulse Resp BP Pulse Ox 04/04/19 15:29 37.1 C 61 16 139/68 98 04/04/19 14:47 61 04/04/19 08:00 84 04/04/19 07:44 36.8 C 68 16 110/63 98
--- NOTE | 2019-04-04 18:26 | Hospitalist Progress Note ---
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 Follows with [facility]. Recommendation for ureteroscopy, biopsy and if positive right nephroureterectomy in September of 2018, refused surgery due to high risk . She had second opinion at [facility] chose to proceed without any intervention per family members -surgery for Nephrectomy was high risk , and likelihood of leading to dialysis with solitary kidney family was aware of the poor prognosis progressive metastatic of RCC : renal mass was 3.6 cm in November of 2017. this admission size has increased to 6 cm with invasion to renal collecting showed [address] chest shows multiple pulmonary nodules suspect for metastatic disease. along with retroperitoneal lymph node metastasis appreciate input from Urology very poor prognosis with no curative tx or urologic procedure available recommends palliative care discussed prognosis with family members -aware family -son and daughters wants to treat the current issues , dehydration , weakness pt already appears to do better after 24 hr of hospital stay with IV hydration appetite has improved family does not want heroics /invasive procedures -no spinal surgery wants to treat dehydration , weakness conservatively ok for SNF if needed aware of the option for hospice , wants to wait for the referral as pt is still in no pain or distress will continue to provide supportive care MRI of lumber spine Dced as per family request (2) Renal mass: metastatic renal cell Ca with mets to lung and retroperitoneal LN discussion as above (3) Weakness: possible due to poor PO intake .dehydration family noted poor appetite for > 2 weeks with episodes of diarrhea much improved after hospital stay (4) 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 appreciate input from Spine Ortho (5) CKD (chronic kidney disease), stage III: baseline CKD stage 3 with large invasive mass /RCC on rt kidney presented with dehydration , poor pO intake reports of diarrhea at home SHARON with mild elevation of Cr form baseline ordered for IV fluid follow BMP avoid NSAID's , contrast studies (6) Abnormal tissue in the uterus: Ct abdomen /pelvis : shows abnormal thickening of uterine wall 15 mm possible foreign body in uterine wall Solar Energy Systems Designer eval requested code status : Full code -pt does not have a POA or living will family aware of the poor prognosis willing to do POLST after discussing with pt and other family members social service consulted for discharge planning Subjective no sign of distress very hard of hearing offers no complain no abdominal or suprapubic tenderndss no fever or chils Review of Systems Review of Systems: All systems reviewed & are unremarkable except as noted in HPI & below Physical Exam Physical Exam: GENERAL: No sign of distress, HEENT: Sclera nonicteric, pink-purple bilateral equal reactive to light extraocular muscle intact Normal oral mucosa, neck: No JVD, no thyromegaly, trachea midline Lungs: Clear to auscultate, no wheeze or rales Cardiovascular: Regular S1 and S2, no murmur or gallop, no JVD, no lower extremity edema Abdomen: Soft, nontender, bowel sounds active, no hepatosplenomegaly Extremities: No rash or deformity, normal joint, Neuro: No focal neurological deficit, no dysarthria, no facial droop/very hared of hearing Psych: Alert awake oriented x3: Euthymic Skin: No rash LYMPH NODES: No cervical lymphadenopathy Results & Data Vital Signs (Past 12 Hours) Vital Signs Temp Pulse Pulse Resp BP Pulse Ox 04/04/19 15:29 37.1 C 61 16 139/68 98 04/04/19 14:47 61 04/04/19 08:00 84 04/04/19 07:44 36.8 C 68 16 110/63 98
[2019-04-04] MEDS: SODIUM CHLORIDE 0.9% 1000ML 1,000 ML IV SCH (19:05)
[2019-04-04] MEDS: FERROUS FUMARATE/ASCORBIC ACID 65 MG CAPCR PO SCH (20:28)
[2019-04-04] MEDS: SIMVASTATIN 10 MG TAB PO SCH (20:29)
[2019-04-05] MEDS: SOTALOL HCL 80 MG TAB PO SCH ×2 (08:29→22:19)
[2019-04-05] MEDS: CALCIUM 600MG + VIT D 400 IU TAB PO SCH (08:29)
[2019-04-05] MEDS: FERROUS FUMARATE/ASCORBIC ACID 65 MG CAPCR PO SCH (08:29)
--- NOTE | 2019-04-05 08:56 | Orthopedic Progress Note ---
Date of Service April 05, 2019 Assessment & Plan (1) Weakness: MRI of the lumbar spine is been canceled. Family desires palliative care only. We will therefore sign off. If there are any further questions please do not hesitate to contact us. Thank you Supervising Physician Co-Signing Physician Notes Dr. Arley Soria Subjective Patient has renal cell carcinoma with metastatic disease to lung and retroperitoneal nodes. MRI of the lumbar spine was canceled yesterday per family request. Current plan of care is palliative. no sign of distress very hard of hearing offers no complain no abdominal or suprapubic tenderndss no fever or chils Review of Systems Review of Systems: All systems reviewed & are unremarkable except as noted in HPI & below Physical Exam Physical Exam: Unchanged Constitutional: WD/WN, vitals as above Eyes: normal visual sullivan by confrontation ENMT: Ears: + hearing impairment Neck: normal visual inspection Respiratory: normal respiratory effort Cardiovascular: Rate/Rhythm: regular rate Vessels: dorsalis pedis pulses present Extremities: normal capillary refill Gastrointestinal (Abdomen): Inspection/Auscultation: abdomen normal to inspection Musculoskeletal: no cyanosis or clubbing, extremities motor strength 5/5 Extremities: strength 5/5 throughout Skin: no rashes, warm and dry Neurologic: patellar DTR's 2+ bilat, sensation intact normal touch/pain/proprioception and moves all extremities Psychiatric: Speech: normal rate/rhythm/volume of speech Results & Data Vital Signs (Past 12 Hours) Vital Signs Temp Pulse Pulse Resp BP Pulse Ox 04/05/19 07:36 37.2 C 69 16 129/76 96 04/05/19 04:21 37 C 74 20 136/68 95 04/04/19 23:15 71 04/04/19 23:12 37.3 C 59 L 18 123/64 97
[2019-04-05] MEDS: cefTRIAXone SODIUM 1,000 MG in DEXTROSE 5% 50 ML IV SCH (09:07)
--- NOTE | 2019-04-05 13:13 | OB/GYN Consultation ---
Date of Consultation April 05, 2019 Assessment & Plan (1) Thickened endometrium: 88 yo postmenopausal female with incidental finding of endometrial thickening , prominent ovaries on CT of pelvis Asymptomatic Declined work up with pelvic US/ Endometrial biopsy Please let us know if she would change her mind Thank you History of Present Illness Reason for Consultation: Thickened endometrium Attending Physician: Marilia Bach MD History of Present Illness Patient is a 88 yo postmenopausal female admitted to medicine department with multiple medical problems and metastatic renal c ca During work up , CT of pelvis showed thickened endometrium and prominent ovaries She has no senior software developer complaints Menopausal for about 40 years No h/o senior software developer problems/ abnormal pap smear Has not been seeing senior software developer No h/o postmenopausal bleeding/ spotting or d/c No pelvic pain/ pressure I discussed with her and her daughter and other family members Recommended pelvic US and endometrial biopsy She declined both Family states she declined treatment for renal ca They will let me know if she will change her mind. Allergies Allergy/AdvReac Type Severity Reaction Status Date / Time No Known Allergies Allergy Mild Verified 12/16/17 15:34 Home Medications Home Medications Medication Instructions Recorded Confirmed Type aspirin [Aspir-81] 81 mg PO HS 04/03/19 04/03/19 History calcium carbonate-vitamin D3 1 tab PO DAILY 04/03/19 04/03/19 History [Calcium 600 + D(3)] ferrous sulfate 325 mg PO DAILY 04/03/19 04/03/19 History simvastatin 10 mg PO PM 04/03/19 04/03/19 History sotalol 40 mg PO BID 04/03/19 04/03/19 History Patient History Medical History Kidney disease (Acute) High cholesterol (Chronic) Social History Preferred Language: Beninese Communication Ability: Effective Signal Maintenance Technician Required: Yes Beliefs That Will Affect Care: Restorationism Restorationism Beliefs: cathloic Current Living Situation: Alone Other Information That Helps Us Care for You: No Feels Safe at Home: Yes Safety Concerns: Feels Safe At This Time Smoking Status: Never smoker Do You Dip or Chew Tobacco: No Hx Alcohol Use: No Hx Substance Use: No Results & Data Vital Signs (Past 12 Hours) Vital Signs Temp Pulse Resp BP Pulse Ox 04/05/19 07:36 37.2 C 69 16 129/76 96 04/05/19 04:21 37 C 74 20 136/68 95
--- NOTE | 2019-04-05 14:39 | Hospitalist Progress Note ---
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 ,Follows with [facility]. Recommendation for ureteroscopy, biopsy and if positive right nephroureterectomy in September of 2018, refused surgery due to high risk She had second opinion at [facility] chose to proceed without any intervention per family members -surgery for Nephrectomy was high risk , and likelihood of leading to dialysis with solitary kidney family was aware of the poor prognosis will continue to provide supportive care MRI of lumber spine Dced as per family request (2) Renal mass: metastatic renal cell Ca with mets to lung and retroperitoneal LN discussion as above (3) Weakness: Possible due to poor PO intake .dehydration Family noted poor appetite for > 2 weeks secondary to metastatic disease Complicated with episodes of diarrhea Clinically much better as of today (4) 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 appreciate input from Spine Ortho No further MRIs of the spine (5) CKD (chronic kidney disease), stage III: Baseline CKD stage 3 with large invasive mass /RCC on rt kidney Presented with dehydration , poor pO intake ,reports of diarrhea at home SHARON with mild elevation of Cr form baseline Received intravenous fluid and advised to have more oral intake Renal function has been improving (6) Abnormal tissue in the uterus: Ct abdomen /pelvis : shows abnormal thickening of uterine wall 15 mm Possible foreign body in uterine wall 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 DVT prophylaxis We will start heparin subcu Code status : Full code -pt does not have a POA or living will Family aware of the poor prognosis Willing to do POLST after discussing with pt and other family members Social service consulted for discharge planning Subjective 04/05 The patient was seen and examined in medical floor Chief complaint history of some back pain Denies any other symptoms except generalized weakness Review of Systems Review of Systems: All systems reviewed and are unremarkable except as noted below Constitutional: + fatigue and + weakness Musculoskeletal: + back pain (Without any radiation) Physical Exam Physical Exam: Lying in bed comfortably Constitutional: well developed and + ill appearing; no acute distress Eyes: PERRL, conjunctivae normal, anicteric sclerae ENMT: external ear and nose normal, oropharynx normal Neck: trachea midline, no thyromegaly Respiratory: normal respiratory effort Auscultation: + diminished lung sounds; no crackles Cardiovascular: Rate/Rhythm: regular rate and regular rhythm Gastrointestinal (Abdomen): Inspection/Auscultation: + abdomen distended Percussion/Palpation: abdomen soft; abdomen nontender Musculoskeletal: Lower lumbar back pain without radiation Neurologic: No focal neuro deficit appreciated Lymphatic: no cervical or axillary lymphadenopathy Results & Data Vital Signs (Past 12 Hours) Vital Signs Temp Pulse Resp BP Pulse Ox 04/05/19 07:36 37.2 C 69 16 129/76 96 04/05/19 04:21 37 C 74 20 136/68 95 Laboratory Results Urine 04/04/19 Range/Units 15:00 Urine Color [place] Urine Appearance Turbid A (Clear) Urine pH 5.5 (4.5-7.5) Ur Specific [place] 1.021 (1.000-1.030) Urine Protein 1+ H (Negative) Urine Glucose (UA) Negative (Negative) Medications Administered Current Inpatient Medications Acetaminophen (Tylenol) 650 mg PO Q4H PRN PRN Reason: Pain or Fever Stop: 05/03/19 21:47 Docusate Sodium/Ferrous Fumarate (Asiya-Sequels) 65 mg PO QAM [facility] Stop: 05/04/19 17:59 Last Admin: 04/05/19 08:29 Dose: 65 mg Documented by: Ceftriaxone Sodium 1,000 mg/ (Dextrose) 50 mls @ 100 mls/hr IV Q24H [facility]; Protocol Stop: 04/10/19 07:59 Last Infusion: 04/05/19 09:57 Dose: Infused Documented by: Multivitamins/Minerals (Caltrate Plus) 1 tab PO DAILY [facility] Stop: 05/04/19 08:59 Last Admin: 04/05/19 08:29 Dose: 1 tab Documented by: Nitroglycerin (Nitrostat) 0.4 mg SL UD PRN PRN Reason: Chest Pain Stop: 05/03/19 21:47 Ondansetron HCl (Zofran) 4 mg IV Q6H PRN PRN Reason: Nausea Stop: 05/03/19 21:47 Polyethylene Glycol (Miralax Powder Packet) 17 gm PO DAILY PRN PRN Reason: Constipation Stop: 05/03/19 21:47 Simvastatin (Zocor) 10 mg PO PM [facility] Stop: 05/03/19 21:47 Last Admin: 04/04/19 20:29 Dose: 10 mg Documented by: Sotalol HCl (Betapace) 40 mg PO BID [facility] Stop: 05/03/19 21:47 Last Admin: 04/05/19 08:29 Dose: 40 mg Documented by:
[2019-04-05 15:54] LABS: INR 1.1 (0.9-1.1); Prothrombin Time 11.2 Seconds (9.0-12.0)
[2019-04-05] MEDS: SIMVASTATIN 10 MG TAB PO SCH (22:20)
[2019-04-05] MEDS: HEPARIN SOD 5,000 UNIT/0.5 ML VIAL SQ SCH (22:23)
[2019-04-06] MEDS: HEPARIN SOD 5,000 UNIT/0.5 ML VIAL SQ SCH ×4 (05:15→20:53)
[2019-04-06 07:25] LABS: Hematocrit (blood only) 31.7 % (37-47); Hemoglobin 10.7 g/dL (12.0-16.0); Mean Corpuscular Hgb Conc 33.8 g/dL (32-36); Mean Corpuscular Volume 81.9 fL (80-100); Mean Platelet Volume 9.9 fL (7.4-10.4); Platelet Count 227 K/uL (130-400); RDW Standard Deviation 39.4 fL (36.4-46.3); Red Blood Count 3.87 M/uL (4.2-5.4); White Blood Count 13.02 K/uL (4.8-10.8)
[2019-04-06 08:00] LABS: BUN Creatinine Ratio 17.3 (10-20); Calcium 9.2 mg/dl (8.5-10.1); Creatinine Clr Calc Pharmacy 24.3 ml/min; Est GFR (African American) 35.7; Est GFR (Non-African American) 30.8; Potassium 3.8 mmol/L (3.5-5.1)
[2019-04-06] MEDS: FERROUS FUMARATE/ASCORBIC ACID 65 MG CAPCR PO SCH (08:13)
[2019-04-06] MEDS: SOTALOL HCL 80 MG TAB PO SCH ×2 (08:13→19:51)
[2019-04-06] MEDS: CALCIUM 600MG + VIT D 400 IU TAB PO SCH (08:14)
[2019-04-06] MEDS: cefTRIAXone SODIUM 1,000 MG in DEXTROSE 5% 50 ML IV SCH (08:35)
--- NOTE | 2019-04-06 16:39 | Hospitalist Progress Note ---
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 ,Follows with [facility]. Recommendation for ureteroscopy, biopsy and if positive right nephroureterectomy in September of 2018, refused surgery due to high risk She had second opinion at [facility] chose to proceed without any intervention per family members -surgery for Nephrectomy was high risk , and likelihood of leading to dialysis with solitary kidney family was aware of the poor prognosis will continue to provide supportive care MRI of lumber spine Dced as per family request (2) Renal mass: metastatic renal cell Ca with mets to lung and retroperitoneal LN discussion as above (3) Weakness: Possible due to poor PO intake .dehydration Family noted poor appetite for > 2 weeks secondary to metastatic disease Complicated with episodes of diarrhea Clinically much better as of today (4) 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 appreciate input from Spine Ortho No further MRIs of the spine Minimal pain without any radiation (5) CKD (chronic kidney disease), stage III: Baseline CKD stage 3 with large invasive mass /RCC on rt kidney Presented with dehydration , poor pO intake ,reports of diarrhea at home SHARON with mild elevation of Cr form baseline Received intravenous fluid and advised to have more oral intake Renal function has been improving-stable creatinine at 1.50 (6) Abnormal tissue in the uterus: Ct abdomen /pelvis : shows abnormal thickening of uterine wall 15 mm 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 eval requested -appreciate input and recommendation Patient refused to have further evaluation DVT prophylaxis We will start heparin subcu Code status : Full code -pt does not have a POA or living will Family aware of the poor prognosis Willing to do POLST after discussing with pt and other family members Social service consulted for discharge planning Subjective 04/05 The patient was seen and examined in medical floor Chief complaint history of some back pain Denies any other symptoms except generalized weakness 04/06 The patient was seen and examined in the medical floor She remains weak and lethargic without any acute symptoms She denies any other symptoms Has been getting physical therapy and will likely need to go for short-term rehab Review of Systems Review of Systems: All systems reviewed and are unremarkable except as noted below Constitutional: + fatigue and + weakness Musculoskeletal: + back pain (Without any radiation) Physical Exam Physical Exam: No apparent distress at rest Constitutional: + ill appearing; no acute distress Eyes: PERRL, conjunctivae normal, anicteric sclerae ENMT: external ear and nose normal, oropharynx normal Neck: trachea midline, no thyromegaly Respiratory: normal respiratory effort Auscultation: + diminished lung sounds; no crackles Cardiovascular: Rate/Rhythm: regular rate and regular rhythm Gastrointestinal (Abdomen): Inspection/Auscultation: + abdomen distended Percussion/Palpation: abdomen soft; abdomen nontender Musculoskeletal: Has back pain without radiation of pain. No acute arthritis in any of the joints Neurologic: Alert and awake, deaf, pleasantly confused Lymphatic: no cervical or axillary lymphadenopathy Results & Data Vital Signs (Past 12 Hours) Vital Signs Temp Pulse Resp BP Pulse Ox 04/06/19 15:33 36.8 C 62 18 95/54 L 96 04/06/19 08:00 37.0 C 61 18 115/73 96 Laboratory Results Short CBC 04/06/19 Range/Units 07:16 WBC 13.02 H (4.8-10.8) K/uL Hgb 10.7 L (12.0-16.0) g/dL Hct 31.7 L (37-47) % Plt Count 227 (130-400) K/uL BMP 04/06/19 07:16 Sodium 139 Potassium 3.8 Chloride 106 Carbon Dioxide 26 BUN 26 H Creatinine 1.50 H Glucose 108 H Calcium 9.2 Medications Administered Current Inpatient Medications Acetaminophen (Tylenol) 650 mg PO Q4H PRN PRN Reason: Pain or Fever Stop: 05/03/19 21:47 Docusate Sodium/Ferrous Fumarate (Asiya-Sequels) 65 mg PO QAM [facility] Stop: 05/04/19 17:59 Last Admin: 04/06/19 08:13 Dose: 65 mg Documented by: Heparin Sodium (Porcine) (Heparin Sodium (Porcine)) 5,000 units SQ Q8 [facility] Stop: 05/05/19 21:59 Last Admin: 04/06/19 13:50 Dose: 5,000 units Documented by: Ceftriaxone Sodium 1,000 mg/ (Dextrose) 50 mls @ 100 mls/hr IV Q24H [facility]; Protocol Stop: 04/10/19 07:59 Last Infusion: 04/06/19 09:05 Dose: Infused Documented by: Multivitamins/Minerals (Caltrate Plus) 1 tab PO DAILY [facility] Stop: 05/04/19 08:59 Last Admin: 04/06/19 08:14 Dose: 1 tab Documented by: Nitroglycerin (Nitrostat) 0.4 mg SL UD PRN PRN Reason: Chest Pain Stop: 05/03/19 21:47 Ondansetron HCl (Zofran) 4 mg IV Q6H PRN PRN Reason: Nausea Stop: 05/03/19 21:47 Polyethylene Glycol (Miralax Powder Packet) 17 gm PO DAILY PRN PRN Reason: Constipation Stop: 05/03/19 21:47 Simvastatin (Zocor) 10 mg PO PM [facility] Stop: 05/03/19 21:47 Last Admin: 04/05/19 22:20 Dose: 10 mg Documented by: Sotalol HCl (Betapace) 40 mg PO BID [facility] Stop: 05/03/19 21:47 Last Admin: 04/06/19 08:13 Dose: 40 mg Documented by:
[2019-04-06] MEDS: SIMVASTATIN 10 MG TAB PO SCH (19:51)
[2019-04-07] MEDS: HEPARIN SOD 5,000 UNIT/0.5 ML VIAL SQ SCH ×3 (05:38→21:56)
[2019-04-07] MEDS: cefTRIAXone SODIUM 1,000 MG in DEXTROSE 5% 50 ML IV SCH (07:29)
[2019-04-07] MEDS: SOTALOL HCL 80 MG TAB PO SCH ×2 (09:05→21:57)
[2019-04-07] MEDS: FERROUS FUMARATE/ASCORBIC ACID 65 MG CAPCR PO SCH (09:05)
[2019-04-07] MEDS: CALCIUM 600MG + VIT D 400 IU TAB PO SCH (09:05)
--- NOTE | 2019-04-07 18:14 | Hospitalist Progress Note ---
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 ,Follows with [facility]. Recommendation for ureteroscopy, biopsy and if positive right nephroureterectomy in September of 2018, refused surgery due to high risk She had second opinion at [facility] chose to proceed without any intervention per family members -surgery for Nephrectomy was high risk , and likelihood of leading to dialysis with solitary kidney family was aware of the poor prognosis will continue to provide supportive care MRI of lumber spine Dced as per family request (2) Renal mass: metastatic renal cell Ca with mets to lung and retroperitoneal LN discussion as above No further treatment for the renal mass and the metastatic (3) Weakness: Possible due to poor PO intake .dehydration Family noted poor appetite for > 2 weeks secondary to metastatic disease Complicated with episodes of diarrhea Clinically much better as of today Awaiting to be transferred to a facility (4) 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 appreciate input from Spine Ortho No further MRIs of the spine Minimal pain without any radiation (5) CKD (chronic kidney disease), stage III: Baseline CKD stage 3 with large invasive mass /RCC on rt kidney Presented with dehydration , poor pO intake ,reports of diarrhea at home SHARON with mild elevation of Cr form baseline Received intravenous fluid and advised to have more oral intake Renal function has been improving-stable creatinine at 1.50 (6) Abnormal tissue in the uterus: Ct abdomen /pelvis : shows abnormal thickening of uterine wall 15 mm Possible foreign body in uterine wall 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 -appreciate input and recommendation Patient refused to have further evaluation DVT prophylaxis We will start heparin subcu Code status : Full code -pt does not have a POA or living will Family aware of the poor prognosis Willing to do POLST after discussing with pt and other family members Discussed with the daughter again today; the patient will be transferred to skilled care facility on approval Social service consulted for discharge planning Subjective 04/05 The patient was seen and examined in medical floor Chief complaint history of some back pain Denies any other symptoms except generalized weakness 04/06 The patient was seen and examined in the medical floor She remains weak and lethargic without any acute symptoms She denies any other symptoms Has been getting physical therapy and will likely need to go for short-term rehab 04/07 Patient was seen and examined in medical floor in presence of the son She remains generally weak and lethargic Denies any acute symptoms Review of Systems Review of Systems: All systems reviewed and are unremarkable except as noted below Constitutional: + fatigue and + weakness Musculoskeletal: + back pain (Without any radiation) Physical Exam Physical Exam: Lying in bed comfortably Constitutional: + ill appearing; no acute distress Eyes: PERRL, conjunctivae normal, anicteric sclerae ENMT: external ear and nose normal, oropharynx normal Neck: trachea midline, no thyromegaly Respiratory: normal respiratory effort Auscultation: + diminished lung vanessa nds; no crackles Cardiovascular: Rate/Rhythm: regular rate and regular rhythm Gastrointestinal (Abdomen): Inspection/Auscultation: + abdomen distended Percussion/Palpation: abdomen soft; abdomen nontender Musculoskeletal: No acute arthritis. Has back pain without radiation Neurologic: Generally weak and lethargy Lymphatic: no cervical or axillary lymphadenopathy Results & Data Vital Signs (Past 12 Hours) Vital Signs Temp Pulse Resp BP Pulse Ox 04/07/19 15:55 36.8 C 72 18 98/64 L 94 04/07/19 07:29 36.9 C 71 18 128/65 95 Medications Administered Current Inpatient Medications Acetaminophen (Tylenol) 650 mg PO Q4H PRN PRN Reason: Pain or Fever Stop: 05/03/19 21:47 Docusate Sodium/Ferrous Fumarate (Asiya-Sequels) 65 mg PO QAM [facility] Stop: 05/04/19 17:59 Last Admin: 04/07/19 09:05 Dose: 65 mg Documented by: Heparin Sodium (Porcine) (Heparin Sodium (Porcine)) 5,000 units SQ Q8 [facility] Stop: 05/05/19 21:59 Last Admin: 04/07/19 14:58 Dose: 5,000 units Documented by: Ceftriaxone Sodium 1,000 mg/ (Dextrose) 50 mls @ 100 mls/hr IV Q24H [facility]; Protocol Stop: 04/10/19 07:59 Last Infusion: 04/07/19 08:00 Dose: Infused Documented by: Multivitamins/Minerals (Caltrate Plus) 1 tab PO DAILY [facility] Stop: 05/04/19 08:59 Last Admin: 04/07/19 09:05 Dose: 1 tab Documented by: Nitroglycerin (Nitrostat) 0.4 mg SL UD PRN PRN Reason: Chest Pain Stop: 05/03/19 21:47 Ondansetron HCl (Zofran) 4 mg IV Q6H PRN PRN Reason: Nausea Stop: 05/03/19 21:47 Polyethylene Glycol (Miralax Powder Packet) 17 gm PO DAILY PRN PRN Reason: Constipation Stop: 05/03/19 21:47 Simvastatin (Zocor) 10 mg PO PM [facility] Stop: 05/03/19 21:47 Last Admin: 04/06/19 19:51 Dose: 10 mg Documented by: Sotalol HCl (Betapace) 40 mg PO BID [facility] Stop: 05/03/19 21:47 Last Admin: 04/07/19 09:05 Dose: 40 mg Documented by:
[2019-04-07] MEDS: SIMVASTATIN 10 MG TAB PO SCH (21:57)
[2019-04-08] MEDS: HEPARIN SOD 5,000 UNIT/0.5 ML VIAL SQ SCH ×3 (05:55→20:49)
[2019-04-08] MEDS: FERROUS FUMARATE/ASCORBIC ACID 65 MG CAPCR PO SCH (08:31)
[2019-04-08] MEDS: SOTALOL HCL 80 MG TAB PO SCH ×2 (08:31→20:50)
[2019-04-08] MEDS: CALCIUM 600MG + VIT D 400 IU TAB PO SCH (08:32)
[2019-04-08] MEDS: cefTRIAXone SODIUM 1,000 MG in DEXTROSE 5% 50 ML IV SCH (08:32)
--- NOTE | 2019-04-08 11:41 | Hospitalist Progress Note ---
Date of Service April 08, 2019 Assessment & Plan (1) Weakness: Improved since admission. Possible etiologies include short-lived diarrhea episode prior to arrival, possible urinary tract infection improved with 4 days of ceftriaxone, poor p.o. intake secondary to decreased appetite, or metastatic disease. Overall she is improved and feeling well and will continue to work on ambulation issues at rehab. (2) Renal mass: Known renal mass consistent with urothelial cancer versus renal cell cancer with metastatic disease. No further work-up per family wishes at this time. Continue follow-up with primary care doctor. (3) Lumbar disc disease: Patient denies any pain. Orthopedics recommended an MRI which was not pursued per family wishes to avoid an aggressive work-up. (4) PAF (paroxysmal atrial fibrillation): Continue sotalol and aspirin 81 mg p.o. nightly. (5) Anemia: Some anemia noted since admission. No transfusion required at this time. Anemia has multiple possible etiologies including renal disease, phlebotomy during hospitalization or dilution secondary to IV fluids administered during admission. Would recommend nonurgent follow-up with primary care doctor as outpatient. (6) DVT prophylaxis: Heparin Full code Disposition-to [facility] when approved and if no beds available patient will be going home with home health and family support. [facility] Subject[facility] 88 [facility] Female with known renal mass present to the emergency room with bilateral leg weakness. This weakness had progressed over the past 2 weeks and the patient stated needing to take breaks to rest for the past few months. She had some diarrhea for approximately 3 days prior to arrival which resolved spontaneously and has now not had a bowel movement for two days. She has had a loss of appetite but no difficulty swallowing. She denies any pain at this time. She states she can stand on her own and ambulate with assistance and feels improved since her admission. On arrival white count was 13,000, H&H was 12.1/36, BUN/creatinine was 31/1.61 in the setting of known CKD stage IV and she is at her baseline renal function. Head CT revealed senescent change and a remote infarct with a known history of stroke with no evidence of acute hemorrhage, mass-effect or territorial ischemia. A chest x-ray revealed no acute cardiopulmonary abnormality with numerous pulmonary nodules noted from prior studies. This is notably concerning for metastatic disease. A chest, abdomen, pelvis and lumbar CT revealed a large infiltrative mass lesion involving the upper pole and interpolar region of the right kidney likely invading the right renal collecting system and with a high probability of renal cell carcinoma. Multifocal pulmonary metastatic disease was seen with mildly enlarged retroperitoneal lymph nodes likely representing metastatic involvement. A thickened endometrium was seen with enlarged ovaries for her age. There was no evidence of osseous metastatic disease in the lumbar spine. There is high- grade central canal stenosis at L4-L5 secondary to a posterior disc bulge and hypertrophy of the ligamentum flavum. Initial urinalysis revealed bacteria, greater than 30 red cells and white cells per high-power field and greater than 30 epis with a culture revealing more than 3 types of organisms present likely skin erica. The patient denies any urinary tract infection symptoms including no dysuria or urgency. However, her weakness has improved with 4 days of ceftriaxone and resolution of diarrhea. During this admission, she was evaluated by orthopedics who recommended an MRI o f the lumbar spine to evaluate further the degree of her spinal stenosis. However, in keeping with family wishes the MRI was not pursued. Urology also evaluated the patient and stated that after reviewing original imaging the renal mass may be consistent with a presumed urothelial cancer versus a renal cell carcinoma with metastatic disease present. Again, this was a known issue prior to admission and an observation pathway was chosen. There is no change to this. Based on CT findings above of a thickened endometrium and prominent ovaries, gynecology was consulted. Again, however, the patient declined work-up with pelvic ultrasound and endometrial biopsy which was recommended. Overall, her weakness was attributed to diarrhea, possible urinary tract infection improved after several days of antibiotics, decreased appetite with decreased p.o. intake overall, and/or metastatic disease. She is improved since admission, tolerating p.o., mentating at baseline and is denying any pain or other symptoms at this time. She denies any urinary tract infection symptoms and specifically denies any diarrhea. She is still weak but is ambulate with assistance and is heading to a rehab temporarily as a transition to home. She and the family are comfortable with this decision and she was discharged with close primary care follow-up recommended. Of note, appetite stimulants were briefly discussed but deferred to PCP if desired in the future. Review of Systems Review of Systems: All systems reviewed & are unremarkable except as noted in HPI & below Physical Exam Physical Exam: CONSTITUTIONAL: WNWD, vitals as above, generally well- appearing EYES: normal conjuctivae, no scleral icterus ENT: MMM RESPIRATORY: clear to auscultation bilaterally, no crackles, rales or wheezes, normal respiratory effort CARDIOVASCULAR: regular rate and rhythm, S1 and 2 heard without murmurs, gallops or rubs, no JVD, no peripheral edema GASTROINTESTINAL: normal bowel sounds, soft, nontender, nondistended MUSCULOSKELETAL: strength 5/5 throughout, head is normocephalic and atraumatic, no spinous process tenderness to palpation. SKIN: warm and dry NEUROLOGIC: no facial palsy, no dysarthria. CN 2-12 grossly intact, normal co gnition, normal speech PSYCHIATRIC: alert cooperative and oriented to person, place and time. Results & Data Vital Signs (Past 12 Hours) Vital Signs Temp Pulse Resp BP Pulse Ox 04/08/19 07:16 37.0 C 63 18 102/57 L 94 Medications Administered Current Inpatient Medications Acetaminophen (Tylenol) 650 mg PO Q4H PRN PRN Reason: Pain or Fever Stop: 05/03/19 21:47 Aspirin (Ecotrin Ectab) 81 mg PO HS [facility] Stop: 05/08/19 20:59 Docusate Sodium/Ferrous Fumarate (Asiya-Sequels) 65 mg PO QAM [facility] Stop: 05/04/19 17:59 Last Admin: 04/08/19 08:31 Dose: 65 mg Documented by: Heparin Sodium (Porcine) (Heparin Sodium (Porcine)) 5,000 units SQ Q8 [facility] Stop: 05/05/19 21:59 Last Admin: 04/08/19 05:55 Dose: 5,000 units Documented by: Ceftriaxone Sodium 1,000 mg/ (Dextrose) 50 mls @ 100 mls/hr IV Q24H [facility]; Protocol Stop: 04/10/19 07:59 Last Infusion: 04/08/19 09:05 Dose: Infused Documented by: Multivitamins/Minerals (Caltrate Plus) 1 tab PO DAILY [facility] Stop: 05/04/19 08:59 Last Admin: 04/08/19 08:32 Dose: 1 tab Documented by: Nitroglycerin (Nitrostat) 0.4 mg SL UD PRN PRN Reason: Chest Pain Stop: 05/03/19 21:47 Ondansetron HCl (Zofran) 4 mg IV Q6H PRN PRN Reason: Nausea Stop: 05/03/19 21:47 Polyethylene Glycol (Miralax Powder Packet) 17 gm PO DAILY PRN PRN Reason: Constipation Stop: 05/03/19 21:47 Simvastatin (Zocor) 10 mg PO PM [facility] Stop: 05/03/19 21:47 Last Admin: 04/07/19 21:57 Dose: 10 mg Documented by: Sotalol HCl (Betapace) 40 mg PO BID [facility] Stop: 05/03/19 21:47 Last Admin: 04/08/19 08:31 Dose: 40 mg Documented by:
[2019-04-08] MEDS: SIMVASTATIN 10 MG TAB PO SCH (20:50)
[2019-04-08] MEDS ORDERED: ASPIRIN 81 MG ECTAB PO SCH (21:00)
[2019-04-09] MEDS: HEPARIN SOD 5,000 UNIT/0.5 ML VIAL SQ SCH ×2 (05:30→14:20)
[2019-04-09 06:25] LABS: Hematocrit (blood only) 30.5 % (37-47); Hemoglobin 10.1 g/dL (12.0-16.0); Mean Corpuscular Hgb Conc 33.1 g/dL (32-36); Mean Corpuscular Volume 82.4 fL (80-100); Mean Platelet Volume 9.9 fL (7.4-10.4); Platelet Count 216 K/uL (130-400); RDW Coefficient of Variation 13.2 % (11.5-14.5); RDW Standard Deviation 40.3 fL (36.4-46.3); White Blood Count 11.72 K/uL (4.8-10.8)
[2019-04-09 07:04] LABS: BUN Creatinine Ratio 19.2 (10-20); Creatinine Clr Calc Pharmacy 23.5 ml/min; Est GFR (African American) 34.3; Est GFR (Non-African American) 29.6; Potassium 3.9 mmol/L (3.5-5.1)
[2019-04-09] MEDS: FERROUS FUMARATE/ASCORBIC ACID 65 MG CAPCR PO SCH (09:07)
[2019-04-09] MEDS: SOTALOL HCL 80 MG TAB PO SCH (09:07)
[2019-04-09] MEDS: CALCIUM 600MG + VIT D 400 IU TAB PO SCH (09:08)
[2019-04-09] MEDS: cefTRIAXone SODIUM 1,000 MG in DEXTROSE 5% 50 ML IV SCH (09:15)
--- NOTE | 2019-04-09 12:43 | Discharge Summary ---
Date of Service April 09, 2019 Admission HPI Per Admitting Provider This is an 88-year-old female with past medical history significant for type 2 diabetes, hyperlipidemia, paroxysmal atrial fibrillation, history of CVA, hypertension, AV malformation of the colon, venous insufficiency, chronic kidney disease stage IV. Baseline creatinine around 1.4 to 1.6, history of right renal mass, hearing loss, glaucoma, presents with mostly the generalized weakness and also weakness in lower extremities. She lives alone. Daughter brought her to the hospital as patient since last 2 weeks is getting progressively weak. Walking from each room to other room, she has to stop. We are not sure there is weakness in the leg. Patient thinks most of the weakness is in the legs. She has on and off some back pain. Denies any headaches or dizziness. She has used eyedrops for dry eyes. Hard of hearing. No difficulty swallowing. Appetite is not that great. Denies any chest pain or abdominal pain, no nausea. She says she has on and off hematuria. She is having some ongoing diarrhea. Currently resting comfortably and hemodynamically stable. The patient has history of right renal mass. She also follows with [facility]. There was a recommendation for ureteroscopy, biopsy and if positive right nephroureterectomy in September of 2018, but patient was comfortable with observation. She also had second opinion at [facility] and was on observation. Her renal mass was 3.6 cm in November of 2017. Today's CAT scan showed [address] chest shows multiple pulmonary nodules suspect for metastatic disease. The patient also has some dry cough but denies any shortness of breath. Admission Exam Per Admitting Provider PHYSICAL EXAMINATION: GENERAL: The patient is old and frail, not in acute distress. VITAL SIGNS: Temperature 37.2, pulse 71, respiratory rate 16, blood pressure 99/78, oxygen 96% on room air. HEENT: No pallor, no icterus. Pupils equal, round, reactive to light. NECK: No JVD, no neck mass, no carotid bruits. CARDIOVASCULAR: S1, S2 heard, regular rate and rhythm, no murmur, no gallop. RESPIRATORY SYSTEM: Normal AP diameter. No accessory muscle use. No wheezing, no crackles. ABDOMEN: Soft, bowel sounds present. Nontender. No distention. CENTRAL NERVOUS SYSTEM: Cranial nerves II-XII grossly intact, nonfocal. EXTREMITIES: Chronic lower extremity skin changes seen. No erythema seen. Principal Diagnosis generalized weakness with contributing factors including possible UTI, resolution of diarrheal illness, decreased oral intake, and/or presumed metastatic disease. Discharge Data Allergies Allergy/AdvReac Type Severity Reaction Status Date / Time No Known Allergies Allergy Mild Verified 12/16/17 15:34 Consultations 04/03/19 21:48 Consult Case Management - Discharge Planning Routine 04/04/19 08:00 Consult Orthopedic Surgery Routine Consult Urology Routine 04/04/19 08:44 Consult Obstetrics Routine 04/05/19 09:21 Consult Patient Services Routine Ordered Studies 04/03/19 17:08 CT head/brain wo con Stat 04/03/19 17:10 CT abd pelvis wo con Stat CT lumbar spine wo con Stat 04/03/19 18:29 CT chest wo con Stat Hospital Course (1) Weakness: (2) Renal mass: (3) Lumbar disc disease: (4) PAF (paroxysmal atrial fibrillation): (5) Anemia: 88 yo Female with known renal mass present to the emergency room with bilateral leg weakness. This weakness had progressed over the past 2 weeks and the patient stated needing to take breaks to rest for the past few months. She had some diarrhea for approximately 3 days prior to arrival which resolved spontaneously and has now not had a bowel movement for 2-3 days. She has had a loss of appetite but no difficulty swallowing. She denied any pain. She was ambulating with assistance during the admission, an improvement from her status prior to arrival with progressed lower extremity weakness. On arrival white count was 13,000, H&H was 12.1/36, BUN/creatinine was 31/1.61 in the setting of known CKD stage IV and she is at her baseline renal function. Head CT revealed senescent change and a remote infarct with a known history of stroke with no evidence of acute hemorrhage, mass-effect or territorial ischemia. A chest x- ray revealed no acute cardiopulmonary abnormality with numerous pulmonary nodules noted from prior studies. This was notably concerning for metastatic disease. A chest, abdomen, pelvis and lumbar CT revealed a large infiltrative mass lesion involving the upper pole and interpolar region of the right kidney likely invading the right renal collecting system and with a high probability of renal cell carcinoma. Multifocal pulmonary metastatic disease was seen with mildly enlarged retroperitoneal lymph nodes likely representing metastatic involvement. A thickened endometrium was seen with enlarged ovaries for her age. There was no evidence of osseous metastatic disease in the lumbar spine. There was high-grade central canal stenosis at L4-L5 secondary to a posterior disc bulge and hypertrophy of the ligamentum flavum. Initial urinalysis revealed bacteria, greater than 30 red cells and white cells per high-power field and greater than 30 epis with a culture revealing more than 3 types of organisms present likely skin erica. The patient denies any urinary tract infection symptoms including no dysuria or urgency. However, her weakness has improved with 4 days of ceftriaxone and resolution of diarrhea. During this admission, she was evaluated by orthopedics who recommended an MRI of the lumbar spine to evaluate further the degree of her spinal stenosis. However, in keeping with family wishes the MRI was not pursued. Urology also evaluated the patient and stated that after reviewing original imaging the renal mass may be consistent with a presumed urothelial cancer versus a renal cell carcinoma with metastatic disease present. Again, this was a known issue prior to admission and an observation pathway was chosen. There is no change to this now. Based on CT findings above of a thickened endometrium and prominent ovaries, gynecology was consulted. Again, however, the patient declined work-up with pelvic ultrasound and endometrial biopsy which was recommended. Overall, her weakness was attributed to diarrhea, possible urinary tract infection improved after several days of antibiotics, decreased appetite with decreased p.o. intake overall, and/or metastatic disease. She is improved since admission, tolerating p.o., mentating at baseline and is denying any pain or other symptoms at this time. She denies any urinary tract infection symptoms and specifically denies any diarrhea. She is still weak but is ambulate with assistance and is heading to a rehab temporarily as a transition to home. She and the family are comfortable with this decision and she was discharged with close primary care follow-up recommended. Of note, appetite stimulants were briefly discussed but deferred to PCP if desired in the future. Total Time Total Time Spent Total Time Spent (In Minutes): 60 Total Time Includes: Examination of the Patient, Discharge Planning, Medication Reconciliation and Communication With Other Providers Discharge Plan Discharge Items Patient Disposition: Transfer Nursing Home Fac Reason For Visit: WEAKNESS Discharge Diagnosis: generalized weakness with contributing factors including possible UTI, resolution of diarrheal illness, decreased oral intake, and/or presumed metastatic disease. Condition: Fair Discharge Goals: Improve function and Increase independence Activity: Resume your previous activity Non-emergency contact: Primary Care Provider Call non-emergency contact if: you have any medication questions, your symptoms worsen, your pain is not controlled and you have a fever Follow-up/Referrals: Darek Mitchell MD [Primary Care Provider] - Diet: Regular Addtl Provider Instructions: Please take all medications as instructed on discharge list below It is recommended that you follow-up with your primary care provider within 1 week of discharge from rehab. It was a pleasure taking care of you! Please call if you have any questions or problems. You can reach a [facility] hospitalist on duty at [facility] 24 hours a day by calling [phone]. Take care of yourself. Dee Lopez, DO [facility] Prescriptions: Continued sotalol 80 mg Tablet 40 mg PO BID RF: 0 simvastatin 10 mg Tablet 10 mg PO PM RF: 0 aspirin [Aspir-81] 81 mg Tablet,Delayed Release (Dr/Ec) 81 mg PO HS RF: 0 ferrous sulfate 325 mg (65 mg iron) Tablet 325 mg PO DAILY RF: 0 calcium carbonate-vitamin D3 [Calcium 600 + D(3)] 600 mg(1,500mg) -400 unit Tablet 1 tab PO DAILY RF: 0 Stand-Alone Forms: My [facility] Admission Data Admit Date/Time: 04/03/19 20:22 Attending Provider: Dee Lopez Admit Provider: Davis Guzman Primary Care Provider: Darek Mitchell Other Providers: Liv Dias ; Arley Soria ; Alexia Bean ; Sorin Mckay Christina ; Rona Haji ; Aaron Perez ; Antonietta Lawson ; Zach Gibson ; Theodore Hensley ; Arsalan Lam Jr ; Anastasia Jovel ; Dee Squires V. ; Ana Can Service: Medical
== END 2019-04-09 15:29 | DRG 841 ==
LOC: ED 15:42 → SUATTDRO 20:22 → 2W 20:22 → 4W 04-06 20:43